=== PATIENT | male | born 1950 | race Caucasian/White ===

== ENCOUNTER → 2016-04-17 | Outpatient (CLI) | payer OTHER ==
[~2016-04-17] MED LIST: ACET325T82 PEG; AMLO2.5T PO; ASPCH81 PEG; ASPCH81X PO; ATOR-24 PO; BACL10TA PO; CMD1 PEG; CMD6 PO; DFL100 PEG; Fibersource 1.2 Cal PEG; LANS30TA3 PEG; LISI5TAB PO; LPT40 PEG; MELATAB2 PO; METO50TA16 PO; METO50TA17 PEG; OXYC1TAB3 PO; POLY335019 PO; SERT50TA PO; TRMCR130WC TOP; ZLF50 PEG; [UNRECOGNIZED DRUG - CODE] TOP
--- NOTE | 2016-04-17 13:39 | DIAGNOSTIC IMAGING REPORT ---
VIDEO SWALLOW STUDY CLINICAL HISTORY: Aspiration. Gastrostomy tube. COMPARISON STUDY: Video swallow study dated 02/06/2016. Fluoroscopy time: 3.9 minutes. FINDINGS: Fluoroscopic guidance was provided to the Department of Speech Pathology in performing a video swallow study. The patient consumed barium impregnated pudding, cracker with paste, nectar thick liquid, and thin barium while the swallowing mechanism was observed in real-time. Significant vallecular retention was noted with the sampled textures. There was silent aspiration seen with one of the thin barium swallows. No penetration or aspiration was seen with the additional sampled textures. Midline sternotomy wires are noted. IMPRESSION: 1. Silent aspiration was observed with one of the thin barium swallows. 2. Vallecular retention was noted with all sampled textures. 3. No penetration or aspiration was seen with the remaining sampled textures. 4. See dedicated speech pathology report for detailed findings and recommendations. Dictated: 04/17/2016 1:29 PM Transcribed: 04/17/2016 1:39 PM [email or web address] Electronically signed by: Abelardo Lopez M.D. 04/17/2016 1:43 PM Dictated Date/Time: 04/17/2016 1:29 PM
--- NOTE | 2016-04-17 16:33 | SWALLOWING EVALUATION ---
REFERRING SPEECH PATHOLOGIST: N/A HISTORY: This 65 year-old man was referred for a VFSS at [facility] in order to determine readiness to resume oral intake and discontinue use of PEG tube. 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 Other PMH: CABG, alcohol abuse, and tobacco abuse. Currently the patient's diet level is, officially, NPO with PEG-tube use, but he has been eating a varied diet via oral intake. Last VFSS was completed 02/06/16. PROCEDURE: The patient was seen in the Radiology Department of [facility] for the VFSS. Cursory examination of the oral cavity revealed adequate dentition. Movement of the articulators was impaired, BUT markedly improved from prior VFSS. Pt is now speaking intelligibly. Speech is slow and moderately dysarthric with some intermittent dysfluencies, but patient can have a conversation and be understood. The patient was seated on a stool and was viewed in both the Anterior-Posterior (A-P) and Lateral planes. Volitional phonation exercises completed in the A-P plane revealed bilateral vocal fold movement and vocal intensity within functional limits. In the lateral plane, the patient was given the following boluses: 1 tsp. thin liquid barium x 2, single swallow thin liquid barium self-presented from a cup, sequential swallows of thin liquid barium self-presented from a straw, 1 tsp. nectar-thick liquid barium, single swallow nectar-thick liquid barium self-presented from a cup, 1 tsp. barium pudding, and 1/2 club cracker with barium pudding. The patient was then repositioned into the A-P plane and given 1 tsp. barium pudding. RESULTS: Oral Stage: Interlabial bolus escape from left lateral juncture that did not progress beyond mid-chin. Bolus escape to floor of mouth during oral bolus hold exercise. Disorganize mastication with solid pieces of bolus left unchewed after initial bolus transfer to pharynx. Repetitive/disorganized lingual motion for bolus transfer. Majority of solid bolus remained in (L) buccal space and on tongue after initial swallow of solid bolus. Latent pharyngeal swallow initiation occurring when the bolus head was in the pyriform sinuses. The oral stage was disorganized and there was moderate lack of bolus control; HOWEVER, the patient compensated for it using finger sweeps and multiple swallows to clear boluses from the oral cavity. This represents significant improvement from the previous VFSS. Pharyngeal Stage: No bolus between soft palate and pharyngeal wall. Partial superior movement of the thyroid cartilage with partial approximation of the arytenoids to the epiglottic petiole. Complete anterior hyoid excursion. Complete epiglottic inversion. Incomplete laryngeal vestibular closure with narrow column of air in laryngeal vestibule. Present pharyngeal stripping wave. Incomplete pharyngeal contraction in the AP plane with evidence for pseudodiverticulae that cleared with a second swallow. Complete distention and duration of PES opening. Wide column of contrast between tongue base and pharyngeal wall. Collection of bolus in the valleculae after the swallow. This was sufficiently minimized with second swallow. There was only one episode of aspiration during this study. A scant amount of thin liquid barium was silently aspirated during sequential swallows presented via straw. All other pharyngeal stage dysphagia was primarily the results of weak tongue base retraction and incomplete thyroid elevation. Overall, this is improved from the previous VFSS. Esophageal Stage: No evidence of esophageal bolus retention. SUMMARY/RECOMMENDATIONS: This patient presents with mild-moderate oral-pharyngeal dysphagia. This is a great improvement from his prior study. The following is recommended: 1. Regular diet as tolerated. The patient is excellent at self-regulating the foods he is able to eat safely and has good caregiver support system at home. 2. Aspiration precautions: NO STRAWS; take liquids in single swallows; continue to use finger sweep and other compensatory strategies as needed for oral bolus control; take medications in a carrier (can trial small pills whole in carrier and work towards taking all pills whole in carrier) 3. Consideration of GI consultation for PEG-tube removal A summary of the results and recommendations was discussed with the patient and a caregiver immediately following the study. They verbalized full understanding. Thank you for referral of this patient. Please contact me at if any additional information is needed.
== END ==
LOC: C.RAD 11:06
PROVIDERS: ATTEND Internal Medicine
DX: Z93.1 Gastrostomy status (principal); R13.12 Dysphagia, oropharyngeal phase; T17.920A Food in respiratory tract, part unspecified causing asphyxiation, initial encounter; X58.XXXA Exposure to other specified factors, initial encounter

== ENCOUNTER → 2016-05-05 | Day surgery (SDC) | payer OTHER ==
[2016-05-04 15:25] VITALS: BMI 21.0
[~2016-05-05] VITALS: Ht 175.3 cm; Wt 61.8 kg
[~2016-05-05] MED LIST changes: -ASPCH81 PEG; -CMD1 PEG; -DFL100 PEG; -Fibersource 1.2 Cal PEG; -LANS30TA3 PEG; -LPT40 PEG; -METO50TA17 PEG; -ZLF50 PEG
[2016-05-05 10:37] VITALS: Ht 175.3 cm; Wt 61.8 kg
--- NOTE | 2016-05-05 11:16 | Endo History and Physical ---
History & Physical Date of Service: May 05, 2016. Chief Complaint: "I need my PEG tube removed" Referring Physician: Dr. Israel History of Present Illness 65 yo CM who presents for PEG tube removal. Past Surgical History Hx Cardiac Surgery: Yes (CABG-1 VESSEL) Hx Internal Defibrillator: No Hx Pacemaker: No Hx Abdominal Surgery: Yes (PEG TUBE INSERTION) Hx of Implantable Prosthesis: No Hx Post-Op Nausea and Vomiting: No Hx Cancer Surgery: No Hx Thoracic Surgery: No Hx Orthopedic: Yes (RT FOOT SX) Hx Urinary Tract Surgery: No Family History None Social History Smoking Status: Former Smoker Hx Substance Use: No Hx Alcohol Use: No Allergies Coded Allergies: Lorazepam (Verified Adverse Reaction, Intermediate, DELIRIUM, 05/04/16) excessive sedation Current Medications Reported Home Medications Medications Dose Route/Sig Max Daily Dose Days Date Category Melatonin Maximum Strengt (Melatonin) 5 Mg Tab 1 Tab PO HS 30 05/04/16 Reported Zoloft (Sertraline HCl) 50 Mg Tab 50 Mg PO QAM 05/04/16 Reported Aspirin Chewable (Aspirin) 81 Mg Chew 81 Mg PO QAM 05/04/16 Reported Coumadin (Warfarin Sod) 6 Mg Tab 1 Tab PO QPM 05/04/16 Reported Lopressor (Metoprolol Tartrate) 50 Mg Tab 50 Mg PO BID 05/04/16 Reported Lipitor (Atorvastatin Calcium) 40 Mg Tab 40 Mg PO QAM 05/04/16 Reported Norvasc (Amlodipine Besylate) 2.5 Mg Tab 2.5 Mg PO QAM 05/04/16 Reported Roxicodone Ir (Oxycodone HCl) 5 Mg Tab 5 Mg PO BID PRN 05/04/16 Reported Lioresal (Baclofen) 10 Mg Tab 10 Mg PO HS 05/04/16 Reported Lioresal (Baclofen) 10 Mg Tab 5 Mg PO BID 05/04/16 Reported Vital Signs Weight (Kilograms): 61.82 Height (Feet): 5 Height (Inches): 9 Date Time Temp Pulse Resp B/P Pulse Ox O2 Delivery O2 Flow Rate FiO2 05/05/16 10:39 36.7 75 20 129/69 97 Room Air Physical Exam General Appearance: WD/WN, no apparent distress Respiratory/Chest: Auscultation: breath sounds normal Cardiovascular: Heart Auscultation: RRR Abdomen: Bowel Sounds: normal Inspection & Palpation: soft, non-distended, no tenderness, guarding & rebound Assessment and Plan Assessment: 65 yo CM who presents for PEG tube removal. Plan: Proceed with PEG tube removal
--- NOTE | 2016-05-05 11:17 | Discharge Instructions ---
Endoscopy Patient Instructions Date / Procedure Performed May 05, 2016. Percutaneous Endoscopic Gastrotomy (P.E.G) Tube Replacement / Removal Allergy Information Coded Allergies: Lorazepam (Verified Adverse Reaction, Intermediate, DELIRIUM, 05/04/16) excessive sedation Home Medication List Scheduled Amlodipine (Norvasc), 2.5 MG PO QAM Aspirin (Aspirin Chewable), 81 MG PO QAM Atorvastatin (Lipitor), 40 MG PO QAM Baclofen (Lioresal), 5 MG PO BID Baclofen (Lioresal), 10 MG PO HS Melatonin (Melatonin Maximum Strengt), 1 TAB PO HS Metoprolol Tartrate (Lopressor) (Lopressor), 50 MG PO BID Sertraline (Zoloft), 50 MG PO QAM Warfarin Sod (Coumadin), 1 TAB PO QPM Scheduled PRN Oxycodone Ir (Roxicodone Ir), 5 MG PO BID PRN for Pain Discharge Date / Findings May 05, 2016. Successful PEG tube removal Provider Instructions Activity Recommendations * Resume regular activity . Diet Recommendations * Resume previous diet. * Advance diet as tolerated. Medication Instructions * Resume usual medications. Follow-Up Information Follow-up with Dr. Israel as scheduled Anesthesia Information What You Should Know You have had a procedure that required some medicine to reduce anxiety and discomfort. This treatment is called moderate sedation. After receiving the treatment, you may be sleepy, but you will be able to breathe on your own. The effects of the treatment may last for several hours. Follow these instructions along with Activity/Diet recommendations noted above: * Do NOT do anything where dizziness or clumsiness would be dangerous. * Rest quietly at home today, then you can be up and about tomorrow. * Have a responsible person stay with you the rest of today. * You may have had an I.V. today. If so, you may take the dressing off later today. Symptoms Additional Instructions If you experience any of the following symptoms after your procedure seek medical attention at your closest Emergency Room and/or call your primary care physician immediately: * Severe abdominal pain or bloating * Fever greater than 101.1 degrees within 24 hours after the procedure * Uncontrolled nausea and vomiting Avoid all tobacco products. If you need help to stop smoking, call [place] FREE QUIT LINE at [phone]. Your discharge instructions were prepared by provider Zak Oh. Patient Instructions Signature Page Raza Ramirez Patient (or Guardian) Signature/Date: I have read and understand the instructions given to me by my caregivers. Caregiver/RN/Doctor Signature/Date: The above-named patient and/or guardian has received patient instructions on this date. + Original Patient Signature Page (only) stays with chart. Please make copy for patient.
[2016-05-05 11:29] VITALS: BP 148/76; PULSE 76; O2SAT 97
--- NOTE | 2016-05-19 10:11 | OPERATIVE REPORT ---
DATE OF OPERATION: 05/05/2016 PATIENT'S AGE: 65. SEX: Male. RACE: . Mr. Ramirez presented to the endoscopy unit for removal of his PEG tube as he is no longer using it and is swallowing appropriately. He consented to the removal of his PEG tube and he was placed in a supine position and with gentle traction the PEG tube was easily removed. The patient tolerated the procedure well. There were no complications. There was no blood loss. He was discharged to home and told to return if he had any abdominal pain, fevers, chills. He was advised to eat a regular diet as tolerated. He will follow up with his primary care doctor. If you have any further questions, please do not hesitate in contacting me. I attest to the content of the Intraoperative Record and any orders documented therein. Any exceptio ns are noted below.
== END | disposition home or self-care (01) ==
LOC: C.GI 09:39
PROVIDERS: ATTEND Internal Medicine
DX: Z43.1 Encounter for attention to gastrostomy (principal)

== ENCOUNTER 2016-07-02 13:13 | Emergency (ER) | payer OTHER ==
[~2016-07-02] VITALS: Ht 175.3 cm; Wt 62.5 kg
[~2016-07-02 13:13] MED LIST changes: -ACET325T82 PEG; -LISI5TAB PO; -POLY335019 PO; -TRMCR130WC TOP; -[UNRECOGNIZED DRUG - CODE] TOP
[2016-07-02 13:15] VITALS: TEMP 36.7
[2016-07-02] MEDS ORDERED: SODIUM CHLORIDE 0.9% 1000ML 1,000 ML IV SCH (13:30)
[2016-07-02 13:39] VITALS: Ht 175.3 cm; Wt 62.5 kg
--- NOTE | 2016-07-02 13:56 | DIAGNOSTIC IMAGING REPORT ---
SINGLE VIEW CHEST CLINICAL HISTORY: Strokelike symptoms. FINDINGS: An AP, portable, upright chest radiograph is compared to study dated 01/05/2016 and correlated with chest CT dated 08/07/2007. The patient is status post midline sternotomy. The heart is top normal in size and there is atherosclerotic calcification of the thoracic aorta. Emphysema and chronic interstitial thickening are similar to previous. No airspace consolidation or pleural effusion is identified. Foci of linear scarring are seen in the left midlung. Biapical scarring is observed. No pneumothorax is seen. The skeletal structures are osteopenic. The bony thorax is grossly intact. IMPRESSION: Emphysema with no acute cardiopulmonary abnormality. Electronically signed by: Abelardo Lopez M.D. 07/02/2016 1:54 PM Dictated Date/Time: 07/02/2016 1:52 PM
[2016-07-02 14:15] LABS: BASO % 0.4 %; BASO ABS # 0.03 K/uL (0-0.2); COMPLETE YES; EOS % 3.5 %; HEMATOCRIT 41.3 % (42-52); LYMPH % 47.1 %; LYMPH ABS # 4.02 K/uL (1.2-3.4); MEAN CORPUSCULAR HEMOGLOBIN 28.9 pg (25-34); MEAN CORPUSCULAR HGB CONC 32.4 g/dl (32-36); MONO % 9.4 %; NEUT % 39.6 %; PLATELET COUNT 228 K/uL (130-400); RED BLOOD COUNT 4.64 M/uL (4.7-6.1); WHITE BLOOD COUNT 8.53 K/uL (4.8-10.8)
[2016-07-02 14:23] LABS: INR 2.4 (0.9-1.1); PARTIAL THROMBOPLASTIN RATIO 1.5; PROTHROMBIN TIME (PATIENT) 26.7 SECONDS (9.0-12.0)
[2016-07-02 14:39] LABS: BLOOD UREA NITROGEN 20 mg/dl (7-18); BUN/CREATININE RATIO 15.2 (10-20); CARBON DIOXIDE 25 mmol/L (21-32); CHLORIDE 112 mmol/L (98-107); GLUCOSE 84 mg/dl (70-99); POTASSIUM 4.5 mmol/L (3.5-5.1); SODIUM 145 mmol/L (136-145)
--- NOTE | 2016-07-02 14:46 | DIAGNOSTIC IMAGING REPORT ---
CT SCAN OF THE BRAIN WITHOUT IV CONTRAST CLINICAL HISTORY: Strokelike symptoms. Recent fall. COMPARISON STUDY: CT of the brain dated 01/27/2016. TECHNIQUE: Unenhanced axial CT scan of the brain is performed from the vertex to the skull base. CT DOSE: 614.27 mGy.cm FINDINGS: Brain parenchyma: There are age-related involutional changes noting mild subcortical and periventricular microangiopathic change. Again seen is encephalomalacia from a remote right MCA territory infarct. There is no hemorrhage, mass effect, or evidence of acute territorial ischemia by CT criteria. Pena-white matter is preserved. No extra-axial fluid collection is seen. Ventricles, sulci, cisterns: Prominent secondary to involutional change. Intracranial vasculature: There is atherosclerotic calcification of the cavernous carotid arteries. Calvarium: There is no depressed calvarial fracture. Soft tissues: There is a small left frontal scalp contusion. Sinuses and mastoids: The visualized paranasal sinuses are clear. The mastoid air cells are well pneumatized. Orbits: The bony orbits are grossly intact. IMPRESSION: 1. There is no hemorrhage, mass effect, or evidence of acute territorial ischemia by CT criteria. 2. A remote right MCA territory infarct is again noted. 3. Left frontal scalp contusion. No depressed calvarial fracture is seen. Electronically signed by: Abelardo Lopez M.D. 07/02/2016 2:44 PM Dictated Date/Time: 07/02/2016 2:41 PM
[2016-07-02 14:54] VITALS: O2SAT 100
[2016-07-02 15:37] LABS: BENZODIAZEPINE, URINE NEG (NEG); COCAINE,URINE NEG (NEG); PHENCYCLIDINE, URINE NEG (NEG)
--- NOTE | 2016-07-02 15:55 | DIAGNOSTIC IMAGING REPORT ---
RIGHT HAND MIN 3 VIEWS ROUTINE CLINICAL HISTORY: eval for fx Right trauma. Pain. COMPARISON: None. DISCUSSION: The bones and joint spaces appear intact. There is no evidence of fracture, dislocation or bony disease. There is no evidence for soft tissue swelling. IMPRESSION: Negative study. Electronically signed by: Angel Finney M.D. 07/02/2016 3:52 PM Dictated Date/Time: 07/02/2016 3:50 PM
--- NOTE | 2016-07-02 17:47 | EMERGENCY ROOM VISIT NOTE ---
History Report prepared by Richard: Estelita Lew Under the Supervision of: Dr. Sushil Costello M.D. First contact with patient: 13:20 Chief Complaint: NEURO SYMPTOMS Stated Complaint: SIGNS OF MINI STROKE,FALL ON CONCRETE ON SAT History of Present Illness The patient is a 65 year old male who presents to the Emergency Room with complaints of persistent neurological symptoms that began 6 days ago. 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 She was suspicious of a TIA at that time. 5 days ago, the patient tripped on the side walk and fell. He hit his head but did not lose consciousness. He has some scrapes and bruises to his right arm, but denies any other injuries or complaints from the fall. 3 days ago, she suggested that the patient come to the ED, but he refused. Today, the patient's therapist noticed his speech slurring and right arm weakness, and she also felt that he should come to the ED. His power of senior c web developer states that the patient has left side residual weakness from a stroke in December 2015. He receives speech therapy. The patient is on warfarin. Denies headache, numbness, chest pain, shortness of breath, hip pain, back pain, vomiting, or other complaints. Source of History: patient, other (power of senior c web developer) Onset: 6 days ago Position: other (global) Quality: other (neurological symptoms) Timing: other (persistent) Associated Symptoms: + weakness (right arm ), No LOC, No SOB, No back pain, No chest pain, No headache, No numbness, No vomiting Note: Other symptoms: slurred speech Review of Systems See HPI for pertinent positives & negatives. A total of 10 systems reviewed and were otherwise negative. Past Medical & Surgical Medical Problems: (1) Acute kidney injury (2) Acute right MCA stroke (3) Alcohol abuse (4) Depression (5) Hypertension Family History Patient reports no known family medical history. Social History Smoking Status: Current Every Day Smoker Alcohol Use: heavy Drug Use: none Housing Status: lives alone Occupation Status: disabled Current/Historical Medications Scheduled Aspirin (Aspirin Chewable), 81 MG PO QAM Atorvastatin (Lipitor), 40 MG PO QPM Baclofen (Lioresal), 5 MG PO BID Baclofen (Lioresal), 10 MG PO HS Melatonin (Melatonin Maximum Strengt), 1 TAB PO HS Metoprolol Tartrate (Lopressor) (Lopressor), 50 MG PO BID Sertraline (Zoloft), 50 MG PO QAM Warfarin Sod (Coumadin), 1 TAB PO QPM Scheduled PRN Oxycodone Ir (Roxicodone Ir), 5 MG PO BID PRN for Pain Allergies Coded Allergies: Lorazepam (Verified Adverse Reaction, Intermediate, DELIRIUM, 07/02/16) excessive sedation Physical Exam Vital Signs Date Time Temp Pulse Resp B/P Pulse Ox O2 Delivery O2 Flow Rate FiO2 07/02/16 14:55 48 17 113/68 100 Room Air 07/02/16 14:54 100 Room Air 07/02/16 13:15 36.7 50 16 110/67 99 Room Air Physical Exam Constitutional: Vital signs reviewed. Eyes: Bruising to the left orbit without body tenderness. Pupils are equal round reactive to light. Conjunctiva are noninjected. ENT: Pharynx is clear without erythema or exudate. Mucous membranes are moist. Neck supple without meningeal signs. Respiratory: Clear to auscultation bilaterally. Breath sounds are equal bilaterally. Cardiovascular: Regular rate and rhythm. No rubs or gallops. GI: Soft, nondistended. Some left lower quadrant tenderness, no guarding. Bowel sounds are present. Musculoskeletal: No peripheral edema. No lower extremity tenderness. Diffuse bruising to the entire right hand, no deformity. Integumentary: No cyanosis. Neurological: The patient is awake and alert. Left arm weakness from his old stroke. He cannot smile, but there is no facial droop. Sensation is intact to light touch all extremities. No significant slurring of speech. GCS 15. Psychiatric: Normal affect. Medical Decision & Procedures ER Provider Diagnostic Interpretation: Radiology results as stated below per my review and the radiologist's interpretation: CT SCAN OF THE BRAIN WITHOUT IV CONTRAST CLINICAL HISTORY: Strokelike symptoms. Recent fall. COMPARISON STUDY: CT of the brain dated 01/27/2016. TECHNIQUE: Unenhanced axial CT scan of the brain is performed from the vertex to the skull base. CT DOSE: 614.27 mGy.cm FINDINGS: Brain parenchyma: There are age-related involutional changes noting mild subcortical and periventricular microangiopathic change. Again seen is encephalomalacia from a remote right MCA territory infarct. There is no hemorrhage, mass effect, or evidence of acute territorial ischemia by CT criteria. Pena-white matter is preserved. No extra-axial fluid collection is seen. Ventricles, sulci, cisterns: Prominent secondary to involutional change. Intracranial vasculature: There is atherosclerotic calcification of the cavernous carotid arteries. Calvarium: There is no depressed calvarial fracture. Soft tissues: There is a small left frontal scalp contusion. Sinuses and mastoids: The visualized paranasal sinuses are clear. The mastoid air cells are well pneumatized. Orbits: The bony orbits are grossly intact. IMPRESSION: 1. There is no hemorrhage, mass effect, or evidence of acute territorial ischemia by CT criteria. 2. A remote right MCA territory infarct is again noted. 3. Left frontal scalp contusion. No depressed calvarial fracture is seen. Electronically signed by: Abelardo Lopez M.D. 07/02/2016 2:44 PM Dictated Date/Time: 07/02/2016 2:41 PM SINGLE VIEW CHEST CLINICAL HISTORY: Strokelike symptoms. FINDINGS: An AP, portable, upright chest radiograph is compared to study dated 01/05/2016 and correlated with chest CT dated 08/07/2007. The patient is status post midline sternotomy. The heart is top normal in size and there is atherosclerotic calcification of the thoracic aorta. Emphysema and chronic interstitial thickening are similar to previous. No airspace consolidation or pleural effusion is identified. Foci of linear scarring are seen in the left midlung. Biapical scarring is observed. No pneumothorax is seen. The skeletal structures are osteopenic. The bony thorax is grossly intact. IMPRESSION: Emphysema with no acute cardiopulmonary abnormality. Electronically signed by: Abelardo Lopez M.D. 07/02/2016 1:54 PM Dictated Date/Time: 07/02/2016 1:52 PM RIGHT HAND MIN 3 VIEWS ROUTINE CLINICAL HISTORY: eval for fx Right trauma. Pain. COMPARISON: None. DISCUSSION: The bones and joint spaces appear intact. There is no evidence of fracture, dislocation or bony disease. There is no evidence for soft tissue swelling. IMPRESSION: Negative study. Electronically signed by: Angel Finney M.D. 07/02/2016 3:52 PM Dictated Date/Time: 07/02/2016 3:50 PM Laboratory Results 07/02/16 14:00 Red Blood Count 4.64, Mean Corpuscular Volume 89.0, Mean Corpuscular Hemoglobin 28.9, Mean Corpuscular Hemoglobin Concent 32.4, Mean Platelet Volume 10.0, Neutrophils (%) (Auto) 39.6, Lymphocytes (%) (Auto) 47.1, Monocytes (%) (Auto) 9.4, Eosinophils (%) (Auto) 3.5, Basophils (%) (Auto) 0.4, Neutrophils # (Auto) 3.38, Lymphocytes # (Auto) 4.02, Monocytes # (Auto) 0.80, Eosinophils # (Auto) 0.30, Basophils # (Auto) 0.03 07/02/16 14:00 Test 07/02/16 13:40 07/02/16 14:00 07/02/16 14:59 Bedside Prothrombin Time INR 2.9 (0.9-1.1) White Blood Count 8.53 K/uL (4.8-10.8) Red Blood Count 4.64 M/uL (4.7-6.1) Hemoglobin 13.4 g/dL (14.0-18.0) Hematocrit 41.3 % (42-52) Mean Corpuscular Volume 89.0 fL (80-100) Mean Corpuscular Hemoglobin 28.9 pg (25-34) Mean Corpuscular Hemoglobin Concent 32.4 g/dl (32-36) Platelet Count 228 K/uL (130-400) Mean Platelet Volume 10.0 fL (7.4-10.4) Neutrophils (%) (Auto) 39.6 % Lymphocytes (%) (Auto) 47.1 % Monocytes (%) (Auto) 9.4 % Eosinophils (%) (Auto) 3.5 % Basophils (%) (Auto) 0.4 % Neutrophils # (Auto) 3.38 K/uL (1.4-6.5) Lymphocytes # (Auto) 4.02 K/uL (1.2-3.4) Monocytes # (Auto) 0.80 K/uL (0.11-0.59) Eosinophils # (Auto) 0.30 K/uL (0-0.5) Basophils # (Auto) 0.03 K/uL (0-0.2) RDW Standard Deviation 47.0 fL (36.4-46.3) RDW Coefficient of Variation 14.4 % (11.5-14.5) Immature Granulocyte % (Auto) 0.0 % Immature Granulocyte # (Auto) 0.00 K/uL (0.00-0.02) Prothrombin Time 26.7 SECONDS (9.0-12.0) Prothromb Time International Ratio 2.4 (0.9-1.1) Activated Partial Thromboplast Time 39.4 SECONDS (21.0-31.0) Partial Thromboplastin Ratio 1.5 Anion Gap 8.0 mmol/L (3-11) Est Creatinine Clear Calc Drug Dose 49.4 ml/min Estimated GFR () 65.9 Estimated GFR (Non- 56.9 BUN/Creatinine Ratio 15.2 (10-20) Calcium Level 9.0 mg/dl (8.5-10.1) Troponin I < 0.015 ng/ml (0-0.045) Urine Opiates Screen POS (NEG) Urine Methadone, Qualitative NEG (NEG) Urine Barbiturates NEG (NEG) Urine Phencyclidine (PCP) Level NEG (NEG) Ur Amphetamine/Methamphetamine NEG (NEG) MDMA (Ecstasy) Screen NEG (NEG) Urine Benzodiazepines Screen NEG (NEG) Urine Cocaine Metabolite NEG (NEG) Urine Marijuana (THC) NEG (NEG) Laboratory results as reviewed by me. Medications Administered Medications (Trade) Dose Ordered Sig/Rena Route Start Time Stop Time Status Last Admin Dose Admin Sodium Chloride (Nss 1000ml) 1,000 ml @ 50 mls/hr Q20H IV 07/02/16 13:30 08/01/16 13:29 07/02/16 13:41 50 MLS/HR ECG Indication: other (neurological symptoms) Rate (beats per minute): 45 Rhythm: sinus bradycardia Findings: T-wave inversion (lead 3), no ectopy ED Course 1322: The patient was evaluated in room C1. A complete history and physical exam was performed. 1330: Ordered NSS 1000 ml @ 50 mls/hr IV. 1442: I reassessed the patient and talked to him about his CBC and rectal exam. He says that he drank Peptol Bismol recently. 1447: The patient's records on the [employer] system were reviewed. His most recent CBC was January of last year. 1534: I discussed the case with Dr. Dey [place] [facility]. He recommended getting an MRI, and if it is negative, discharging the patient. 1720: I reassessed the patient and updated him on the plan. 1800: The patient was signed out to Dr. Wilson at the change of shift pending MRI results. Please see his note for further information regarding the patient' s visit and disposition. Medical Decision This is a 65-year-old male presents with neurologic symptoms and a fall. Differential diagnosis includes intracranial hemorrhage, CVA, TIA, metabolic derangement, intracranial mass. I did perform a limited focused review of portions of the patient's old chart on the electronic medical record. He was admitted December of last year for CVA which was bihemispheric in multiple territories, thought to be embolic. I did evaluate the patient as noted above. I do not notice any focal deficits on examination other than his pre-existing deficits from his prior stroke. IV access was established. The patient was placed on a continuous alarm security or surveillance monitor. I did order and personally review the patient's 12-lead EKG and x- rays as described above. I did order and review the patient's blood work as noted in the electronic medical record. His INR is therapeutic. I did order a CT of the head. I did review the images myself as well as the radiology report as described above. There is no evidence of acute process. I did reassess the patient. He seems at his baseline at this time according to his healthcare proxy. I discussed the case with Dr. Dey of neurology who recommended obtaining an MRI of the brain. Should the MRI be negative she could be discharged home. I did order the MRI which is currently pending. The patient was signed out to Dr. Wilson. Consults Time Called: 1518 Consulting Physician: Dr. Yissel FIGUEREDO [facility] Returned Call: [phone] I discussed the case with him. He recommended getting an MRI, and if it is negative, discharging the patient. Impression Primary Impression: Neurological symptoms Additional Impressions: Fall Head injury Anticoagulated on Coumadin Injury of right hand Scribe Attestation The scribe's documentation has been prepared under my direct and personally reviewed by me in its entirety. I confirm that the note above accurately reflects all work, treatment, procedures, and medical decision making performed by me. Departure Information Dispostion Still a Patient (signed out to Dr. Wilson) Referrals Kathy Israel M.D. (PCP) Patient Instructions My [facility] Problem Qualifiers Additional Impressions: Fall Encounter type: initial encounter Qualified Codes: W19.XXXA - Unspecified fall, initial encounter Head injury Encounter type: initial encounter Qualified Codes: S09.90XA - Unspecified injury of head, initial encounter Injury of right hand Encounter type: initial encounter Qualified Codes: S69.91XA - Unspecified injury of right wrist, hand and finger(s), initial encounter
[2016-07-02] MEDS ORDERED: GADAVIST IV PRN (20:30)
--- NOTE | 2016-07-02 21:05 | DIAGNOSTIC IMAGING REPORT ---
MRI OF THE BRAIN WITHOUT AND WITH IV CONTRAST CLINICAL HISTORY: Right hand weakness and difficulty with speech. History of stroke. Recent fall. COMPARISON STUDY: MRI of the brain December 28, [address] performed earlier today. TECHNIQUE: Utilizing a 1.5 Ladonna magnet and dedicated coil, multiplanar, multiecho imaging of the brain was performed pre and postcontrast administration. IV administration of 6 mL of Gadavist contrast was uneventful. FINDINGS: There is an old large right middle cerebral artery territory infarct with encephalomalacia. Scattered additional old infarcts are noted, including within the posterior left frontal lobe. There are no areas of restricted diffusion to suggest acute infarct. Apparent restricted diffusion within the right occipital lobe is within the old infarct and is likely chronic. An area of increased signal intensity within the left frontal lobe shown on image 16 of the diffusion-weighted sequence likely reflects T2 shine through. This favors an old infarct. Basilar cisterns are patent. There are no extra-axial collections. No acute intracranial hemorrhage is present. A small left forehead contusion is present. No suspicious calvarial lesions are present. There are no intracranial masses. Gyriform increased T1 signal within the old infarcts reflects laminar necrosis. A band of increased T2 signal extending through the brainstem suggests Wallerian degeneration related to the old infarct. IMPRESSION: 1. No acute intracranial findings. 2. Large old right MCA territory infarct and scattered additional old infarcts, as described above. 3. No acute intracranial hemorrhage. Electronically signed by: Jurgen Jones M.D. 07/02/2016 9:03 PM Dictated Date/Time: 07/02/2016 8:54 PM
[2016-07-02 21:32] VITALS: BP 151/74; PULSE 56; O2SAT 98
--- NOTE | 2016-07-02 22:44 | EMERGENCY ROOM VISIT NOTE ---
ED Visit Note First contact with patient: 18:11 65 yr old male arrived earlier in day for evaluation of right sided weakness. Dr Costello initially evaluated and worked up. He discussed with neurology who advised MRI brain. Patient signed out to me with plan if MRI normal to discharge home. Patient with no complaints while in ED. MRI without any acute findings. Patient comfortable with going home.
[2016-07-06 05:28] LABS: COD UR NEGATIVE NG/ML (CUTOFF=50); HYDROCOD UR NEGATIVE NG/ML (CUTOFF=50); HYDROMOR UR NEGATIVE NG/ML (CUTOFF=50); MORPHINE UR NEGATIVE NG/ML (CUTOFF=50); NORHYDROCODONE CONF UR NEGATIVE NG/ML (CUTOFF=50); OXYMORPH UR 840 NG/ML (CUTOFF=50)
[2016-07-22] MEDS ORDERED: POLY335019 PO (08:26)
[2016-07-22] MEDS ORDERED: ACET325T82 PEG (08:26)
[2016-07-22] MEDS ORDERED: TRMCR130WC TOP (08:26)
[2016-07-22] MEDS ORDERED: LISI5TAB PO (08:26)
[2016-07-22] MEDS ORDERED: [UNRECOGNIZED DRUG - CODE] TOP (08:26)
== END 2016-07-02 21:33 | disposition home or self-care (01) ==
LOC: C.EDB 13:14 → C.EDC 21:33
DX: M62.81 Muscle weakness (generalized) (principal); R47.81 Slurred speech; S09.90XA Unspecified injury of head, initial encounter; S69.91XA Unspecified injury of right wrist, hand and finger(s), initial encounter; W19.XXXA Unspecified fall, initial encounter; I69.398 Other sequelae of cerebral infarction; F10.10 Alcohol abuse, uncomplicated; F32.9 Major depressive disorder, single episode, unspecified; I10 Essential (primary) hypertension; F17.200 Nicotine dependence, unspecified, uncomplicated; Z79.82 Long term (current) use of aspirin; Z79.01 Long term (current) use of anticoagulants; Z79.899 Other long term (current) drug therapy

== ENCOUNTER 2017-03-18 04:36 | Emergency (ER) | payer OTHER ==
[~2017-03-18] VITALS: Ht 175.3 cm; Wt 62.8 kg
[2017-03-18 04:36] VITALS: TEMP 37.1; Ht 175.3 cm; Wt 62.8 kg
[~2017-03-18 04:36] MED LIST changes: +ACET325T82 PEG; -AMLO2.5T PO; +LISI5TAB PO; +OXYC-90 PO; -OXYC1TAB3 PO; +POLY335019 PO; +TRMCR130WC TOP; +[UNRECOGNIZED DRUG - CODE] TOP
[2017-03-18 04:43] VITALS: O2SAT 97
[2017-03-18 04:45] VITALS: O2SAT 97
[2017-03-18] MEDS ORDERED: PSEU60TA80 PO (05:05)
[2017-03-18] MEDS ORDERED: ADVIN25/60 INH (05:07)
[2017-03-18] MEDS ORDERED: ALBU18002 INH (05:08)
[2017-03-18] MEDS ORDERED: CLR10 PO (05:09)
[2017-03-18] MEDS ORDERED: TADA10TA PO (05:11)
[2017-03-18] MEDS ORDERED: ALBUT/IPRATROP 3MG/0.5MG NEB 3 ML VIAL INH STA (05:13)
--- NOTE | 2017-03-18 05:13 | EMERGENCY ROOM VISIT NOTE ---
History Report prepared by Richard: Chris Richardson Under the Supervision of: Dr. Selene Brewer D.O. First contact with patient: 04:50 Chief Complaint: RESPIRATORY PROBLEMS Stated Complaint: COUGH/CHEST CONGESTION Nursing Triage Summary: Pt brought in by EMS. Pt reports cough and congestion for 2 weeks. Pt took Mucinex tonight with no relief. Pt woke an hour ago with shortness of breathe. Hx CVA History of Present Illness The patient is a 66 year old male who presents to the Emergency Room with complaints of shortness of breath that began 1 hour ago. The patient's first symptoms began a couple of weeks ago with a cough and congestion. These two continued until recently when he awoke from sleep having difficulty breathing. He notes that yesterday he took Mucinex , but it did not help his symptoms. He notes that his cough is productive with clear sputum. If he is able to cough out his sputum, his chest congestion feels moderately better. He denies any fevers, abdominal pain, or leg cramping. He was seen last week at a walk in clinic and was given a course of Prednisone which helped his symptoms as well. He has a past medical history of a stoke that occurred 15 months ago. He was rehabilitated at [facility]. Source of History: patient Onset: 1 hour ago Position: other (Respiratory System) Symptom Intensity: moderate Quality: other (Shortness of breath) Timing: constant Associated Symptoms: + cough (clear sputum production), No fevers, No abdominal pain Note: He is experiencing chest congestion. He denies any leg cramping. Review of Systems See HPI for pertinent positives & negatives. A total of 10 systems reviewed and were otherwise negative. Past Medical & Surgical Medical Problems: (1) Acute kidney injury (2) Acute right MCA stroke (3) Alcohol abuse (4) Depression (5) Hypertension Family History Patient reports no known family medical history. Social History Smoking Status: Current Some Day Smoker Alcohol Use: heavy Drug Use: none Housing Status: lives alone Occupation Status: disabled Current/Historical Medications Scheduled Aspirin (Aspirin Chewable), 81 MG PO QAM Atorvastatin (Lipitor), 40 MG PO QPM Baclofen (Lioresal), 10 MG PO BID Baclofen (Lioresal), 20 MG PO HS [place] Tar Extract (Ionil-T), 1 APPLN TOP HS Fluticasone Prop/Salmeterol (Advair Diskus 250/50 60 Dose), 1 PUFF INH BID Hydrocodone W/ Homatropine (Hycodan 5/1.5MG 5 Ml), 5 ML PO Q4H Lisinopril (Prinivil), 2.5 MG PO DAILY Loratadine (Claritin), 10 MG PO DAILY Methylprednisolone (Medrol Dosepak), 1 PKT PO UD Metoprolol Tartrate (Lopressor) (Lopressor), 25 MG PO BID Triamcinolone Acet (Aristocort 0.1%), 1 APPLN TOP BID Warfarin Sod (Coumadin), 6 MG PO QPM Scheduled PRN Acetaminophen (Apap), 650 MG PEG Q4 PRN for Pain or Fever Albuterol Sulfate (Proair Respiclick), 2 PUFFS INH Q6 PRN for wheezing Oxycodone Ir (Roxicodone Ir), 5 MG PO BID PRN for Pain Polyethylene Glycol 3350 (Miralax), 17 GM PO DAILY PRN for Constipation Pseudoephedrine-Guaifenesin (Mucinex D), 1 TAB PO BID PRN for congestion Tadalafil (Cialis), 10 MG PO UD PRN for erectile dysfunction Allergies Coded Allergies: Lorazepam (Verified Adverse Reaction, Intermediate, DELIRIUM, 03/18/17) excessive sedation Physical Exam Vital Signs Date Time Temp Pulse Resp B/P (MAP) Pulse Ox O2 Delivery O2 Flow Rate FiO2 03/18/17 06:12 90 16 125/72 Room Air 03/18/17 04:45 97 Room Air 03/18/17 04:43 105 03/18/17 04:43 97 Room Air 03/18/17 04:36 37.1 103 24 124/104 100 Room Air Physical Exam HEENT: Head - normocephalic and atraumatic Pupils are equal, round, and reactive to light. Extraocular eye muscles are intact, and sclera are anicteric. Nose - moist nasal mucosa without discharge. Mouth - moist buccal mucosa. Oropharynx is nonerythematous and there is no tonsillar exudate or edema noted. Neck: Supple; no JVD, nuchal rigidity, cervical lymphadenopathy, or auscultated bruits. Heart: Regular rate and rhythm. There is a normal S1 and S2 with no murmurs, clicks, or gallops appreciated. Lungs: Minimal expiratory bibasilar wheezes. Abdomen: Soft, completely nontender, nondistended, with good bowel sounds. There are no palpable pulsatile masses or hepatosplenomegaly. There is no guarding, rigidity, or rebound noted. Extremities: No evidence of cyanosis, clubbing, or edema. There are easily palpable peripheral pulses. Skin: warm and dry with good turgor and no rashes. Medical Decision & Procedures ER Provider Diagnostic Interpretation: Radiology results as stated below per my review and the radiologist's interpretation: CHEST X-RAY 1 VIEW: Negative for acute process. No pulmonary infiltrates. Some interstitial scarring. Per me. Medications Administered Medications (Trade) Dose Ordered Sig/Rena Route Start Time Stop Time Status Last Admin Dose Admin Albuterol/ Ipratropium (Duoneb) 3 ml NOW STAT INH 03/18/17 05:13 03/18/17 05:15 DC 03/18/17 05:19 3 ML Prednisone (PredniSONE TAB) 60 mg NOW STAT PO 03/18/17 05:13 03/18/17 05:15 DC 03/18/17 05:19 60 MG Procedure Prednisone 60 mg PO DuoNeb 3 ml INH ECG Indication: SOB/dyspnea Rate (beats per minute): 103 Rhythm: sinus tachycardia Findings: no acute ischemic change, no ectopy ED Course 0450: Past medical records reviewed. The patient was evaluated in room B12B. A complete history and physical exam was performed. 0513: Ordered Prednisone 60 mg PO, DuoNeb 3 ml INH 0609: The patient's is feeling slightly better after his nebulizer. We discussed his chest x-ray results. He is no longer wheezing. He will be discharged. 0630: Upon reevaluation, the patient is resting. I discussed findings and results with him. He verbalized agreement of the treatment plan. He was discharged home. Medical Decision The patient is a 66 year old male who presents to the ED with shortness of breath. Differential diagnosis includes URI, pneumonia, and bronchitis. The patient describes shortness of breath and cough over the past couple weeks. On physical exam, he's been wheezing. He had some relief of the shortness of breath after the nebulizer treatment. A chest x-ray was unremarkable. The patient describes having similar episodes in the past which responded nicely to steroids. He was given a tapering dose of prednisone. He was also given Hycodan cough syrup.as Medication Reconcilliation Current Medication List: was personally reviewed by me Blood Pressure Screening Patient's blood pressure: Normal blood pressure Blood pressure disposition: Did not require urgent referral Impression Primary Impression: Wheezing Scribe Attestation The scribe's documentation has been prepared under my direction and personally reviewed by me in its entirety. I confirm that the note above accurately reflects all work, treatment, procedures, and medical decision making performed by me. Departure Information Dispostion Home / Self-Care Prescriptions Hydrocodone W/ Homatropine (HYCODAN 5/1.5MG 5 ML) 1 Syp Syp 5 ML PO Q4H, #100 ML Prov: Selene Brewer D.O. 03/18/17 Methylprednisolone (MEDROL DOSEPAK) 4 Mg Maxim 1 PKT PO UD for 6 Days, #1 PKT Prov: Selene Brewer D.O. 03/18/17 Referrals Kathy Israel M.D. (PCP) Forms HOME CARE DOCUMENTATION FORM, IMPORTANT VISIT INFORMATION, WORK / SCHOOL INSTRUCTIONS Patient Instructions ED Wheezing, My [facility] Additional Instructions Rest take medrol dose pack. Follow up with PCP for a recheck. Return to the ER if symptoms worsen.
[2017-03-18] MEDS ORDERED: METH4PAK PO (06:11)
[2017-03-18 06:12] VITALS: BP 125/72; PULSE 90
[2017-03-18] MEDS ORDERED: HYDR5SYP11 PO (06:16)
--- NOTE | 2017-03-18 07:26 | DIAGNOSTIC IMAGING REPORT ---
CHEST 2 VIEWS ROUTINE CLINICAL HISTORY: eval for sob/cough dyspnea COMPARISON STUDY: 07/22/2016 FINDINGS: Cardiac plaque atelectasis/parenchymal scarring left midlung. No evidence for acute infiltrate. Subtle increase in pulmonary vasculature compared to the prior study. No radiographic evidence for congestive failure. IMPRESSION: Chronic and postoperative change. Slight prominence pulmonary vasculature. The above report was generated using voice recognition software. It may contain grammatical, syntax or spelling errors. Electronically signed by: Angel Finney M.D. 03/18/2017 7:25 AM Dictated Date/Time: 03/18/2017 7:24 AM
== END 2017-03-18 05:30 | disposition home or self-care (01) ==
LOC: EDBD 04:36 → C.EDB 04:39
DX: R06.2 Wheezing (principal); R00.0 Tachycardia, unspecified; I10 Essential (primary) hypertension; F32.9 Major depressive disorder, single episode, unspecified; F17.200 Nicotine dependence, unspecified, uncomplicated; Z86.73 Personal history of transient ischemic attack (TIA), and cerebral infarction without residual deficits; Z79.82 Long term (current) use of aspirin; Z79.01 Long term (current) use of anticoagulants; Z79.899 Other long term (current) drug therapy; Z88.8 Allergy status to other drugs, medicaments and biological substances

== ENCOUNTER 2017-03-28 16:50 | Emergency (ER) | payer OTHER ==
[~2017-03-28] VITALS: Ht 175.3 cm; Wt 61.0 kg
[~2017-03-28 16:50] MED LIST changes: +ADVIN25/60 INH; +ALBU18002 INH; +CLR10 PO; +HYDR5SYP11 PO; -MELATAB2 PO; -OXYC-90 PO; +OXYC1TAB3 PO; +PSEU60TA80 PO; -SERT50TA PO; +TADA10TA PO
[2017-03-28 16:55] VITALS: TEMP 36.6; Ht 175.3 cm; Wt 61.0 kg
[2017-03-28] MEDS ORDERED: SODIUM CHLORIDE 0.9% 1000ML 1,000 ML IV STA (17:18)
[2017-03-28] MEDS ORDERED: WARF6TAB PO (17:20)
[2017-03-28] MEDS ORDERED: LSN25 PO (17:20)
[2017-03-28] MEDS ORDERED: OXYC-57 PO (17:20)
[2017-03-28] MEDS ORDERED: ASPI81TA28 PO (17:25)
[2017-03-28 17:35] LABS: BASO % 0.5 %; BASO ABS # 0.05 K/uL (0-0.2); EOS % 2.1 %; EOS ABS # 0.23 K/uL (0-0.5); HEMATOCRIT 51.6 % (42-52); HEMOGLOBIN 17.6 g/dL (14.0-18.0); IG# 0.04 K/uL (0.00-0.02); LYMPH % 30.9 %; LYMPH ABS # 3.36 K/uL (1.2-3.4); MEAN CELL VOLUME 91.2 fL (80-100); MEAN CORPUSCULAR HEMOGLOBIN 31.1 pg (25-34); MEAN CORPUSCULAR HGB CONC 34.1 g/dl (32-36); MEAN PLATELET VOLUME 10.2 fL (7.4-10.4); MONO % 7.4 %; MONO ABS # 0.81 K/uL (0.11-0.59); NEUT % 58.7 %; PLATELET COUNT 238 K/uL (130-400); RED CELL DISTRIBUTION WIDTH CV 13.7 % (11.5-14.5); WHITE BLOOD COUNT 10.89 K/uL (4.8-10.8)
[2017-03-28 17:48] LABS: INR 2.9 (0.9-1.1)
[2017-03-28 17:54] LABS: ALBUMIN 3.2 gm/dl (3.4-5.0); ALT/SGPT 39 U/L (12-78); AST/SGOT 22 U/L (15-37); BLOOD UREA NITROGEN 12 mg/dl (7-18); CALCIUM 8.5 mg/dl (8.5-10.1); CARBON DIOXIDE 31 mmol/L (21-32); CREATININE 1.18 mg/dl (0.60-1.40); GLUCOSE 144 mg/dl (70-99); LIPASE 223 U/L (73-393); POTASSIUM 3.4 mmol/L (3.5-5.1); SODIUM 142 mmol/L (136-145)
[2017-03-28 17:59] LABS: ALKALINE PHOSPHATASE 89 U/L (45-117); TOTAL PROTEIN 6.9 gm/dl (6.4-8.2)
--- NOTE | 2017-03-28 18:08 | EMERGENCY ROOM VISIT NOTE ---
History Report prepared by Richard: Austin Finley Under the Supervision of: Dr. Dedrick Abebe M.D. First contact with patient: 17:02 Chief Complaint: NEURO SYMPTOMS Stated Complaint: STROKE SYMPTOMS History of Present Illness The patient is a 66 year old male who presents to the Emergency Room with complaints of resolved left hand shaking that began 30 minutes ago. He reports that he has a history of a stroke that occurred last year with residual slurred speech, facial droop, and left sided weakness. He states that since the stroke , he has improved but reports that he is still not back to normal. The patient states that he is still experiencing a problem with left arm weakness and stiffness. He reports that he is concerned that he is currently having a stroke. He states that he is currently back to normal. 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 The patient denies lower extremity weakness, abdominal pain, and diarrhea. He reports that he has a history of asthma, but admits this is resolved. The patient states that he smokes a pack a day. He reports that he recently was diagnosed with bronchitis, which he reports he is experiencing a cough from. Source of History: patient Onset: 30 minutes [employer] Position: hand (left) Quality: other (shaking) Timing: resolved Associated Symptoms: + cough, No abdominal pain, No diarrhea, No weakness Review of Systems See HPI for pertinent positives and negatives. A total of ten systems were reviewed and were otherwise negative. Past Medical & Surgical Medical Problems: (1) Acute kidney injury (2) Acute right MCA stroke (3) Alcohol abuse (4) Depression (5) Hypertension Family History Patient reports no known family medical history. Social History Smoking Status: Current Some Day Smoker Alcohol Use: heavy Drug Use: none Housing Status: lives alone Occupation Status: disabled Current/Historical Medications Scheduled Aspirin (Aspirin Ec), 81 MG PO DAILY Atorvastatin (Lipitor), 40 MG PO QPM Tom [place] Tar Extract (Ionil-T), 1 APPLN TOP HS Fluticasone Prop/Salmeterol (Advair Diskus 250/50 60 Dose), 1 PUFF INH BID Lisinopril (Lisinopril), 2.5 MG PO DAILY Loratadine (Claritin), 10 MG PO DAILY Metoprolol Tartrate (Lopressor) (Lopressor), 25 MG PO DAILY Triamcinolone Acet (Aristocort 0.1%), 1 APPLN TOP BID Warfarin Sod (Coumadin), 6 MG PO 4XWK Warfarin Sodium (Coumadin), 9 MG PO 3XWK Scheduled PRN Acetaminophen (Apap), 650 MG PEG Q4 PRN for Pain or Fever Albuterol Sulfate (Proair Respiclick), 2 PUFFS INH Q6 PRN for wheezing Baclofen (Lioresal), 10 MG PO DAILY PRN for Muscle Spasms Oxycodone/Acetaminophen 5MG/325MG (Percocet 5MG/325MG), 1 TAB PO DAILY PRN for Pain Pseudoephedrine-Guaifenesin (Mucinex D), 1 TAB PO BID PRN for congestion Tadalafil (Cialis), 10 MG PO UD PRN for erectile dysfunction Allergies Coded Allergies: Lorazepam (Verified Adverse Reaction, Intermediate, DELIRIUM, 03/28/17) excessive sedation Physical Exam Vital Signs Date Time Temp Pulse Resp B/P (MAP) Pulse Ox O2 Delivery O2 Flow Rate FiO2 03/28/17 22:37 62 18 135/73 95 Room Air 03/28/17 22:06 61 18 127/77 95 Room Air 03/28/17 19:11 57 18 131/74 97 Room Air 03/28/17 17:23 61 03/28/17 16:55 36.6 80 20 164/82 95 Room Air Physical Exam GENERAL: Awake, alert, well-appearing, in no distress HENT: Normocephalic, atraumatic. Dry mucous membranes, baseline left facial droop, EYES: Normal conjunctiva. Sclera non-icteric. NECK: Supple. No nuchal rigidity. FROM. No JVD. RESPIRATORY: Clear to auscultation. CARDIAC: Regular rate, normal rhythm. Extremities warm and well perfused. Pulses equal. ABDOMEN: Soft, non-distended. No tenderness to palpation. No rebound or guarding. No masses. RECTAL: Deferred. MUSCULOSKELETAL: Chest examination reveals no tenderness. The back is symmetrical on inspection without obvious abnormality. There is no CVA tenderness to palpation. No joint edema. LOWER EXTREMITIES: Calves are equal size bilaterally and non-tender. No edema. No discoloration. 5/5 strength BLE. NEURO: Normal sensorium. No sensory or motor deficits noted. Mild weakness in left upper extremity at baseline. Mild dysarthria, aphasia also at baseline. No other focal deficits. SKIN: No rash or jaundice noted. Medical Decision & Procedures ER Provider Diagnostic Interpretation: Radiology results as stated below per my review and radiologist interpretation: CHEST ONE VIEW PORTABLE CLINICAL HISTORY: Abdominal pain. COMPARISON STUDY: Chest radiograph March 18, 2017. FINDINGS: There are median sternotomy wires and clips from bypass grafting. There is no lucency under the hemidiaphragms to suggest pneumoperitoneum. There is no evidence for pulmonary edema. No consolidation is identified. Cardiomediastinal silhouette is normal. Linear left lung opacities likely reflect atelectasis or scarring. Lower lung nodular densities may reflect nipple shadows. IMPRESSION: 1. No acute cardiopulmonary findings. 2. Bilateral lower lung nodular densities. These favor nipple shadows however follow-up nonemergent PA and shallow oblique radiographs of the chest with nipple markers are recommended. Electronically signed by: Jurgen Jones M.D. 03/28/2017 6:19 PM Dictated Date/Time: 03/28/2017 6:[address] OF THE HEAD WITHOUT CONTRAST CLINICAL HISTORY: Left upper extremity weakness. Stroke symptoms. COMPARISON STUDY: Head CT and MRI of the brain July 02, 2016. CT DOSE: 614.27 mGy.cm TECHNIQUE: Helical axial images of the head were obtained without IV contrast. Automated exposure control was utilized for the study. A dose lowering technique was utilized adhering to the principles of ALARA. FINDINGS: No acute intracranial hemorrhage, midline shift or mass effect is present. Extensive encephalomalacia within the right MCA territory is unchanged and consistent with old infarct. There is also an old infarct within the left parietal lobe. Ventricles system is stable. Basilar cisterns are patent. There are no extra-axial collections. There are no findings to suggest acute dural sinus thrombosis or acute territorial infarct. There are no significant calvarial abnormalities. Visualized portions of the sinuses and mastoid air cells are clear. IMPRESSION: 1. No acute intracranial findings. 2. Large old right MCA territory infarct and scattered additional old infarcts which are unchanged. Electronically signed by: Jurgen Jones M.D. 03/28/2017 6:24 PM Dictated Date/Time: 03/28/2017 6:19 PM MRI OF THE BRAIN WITHOUT CONTRAST CLINICAL HISTORY: Left upper extremity weakness. Possible transient ischemic attack. COMPARISON STUDY: MRI of the brain July 02, [address] performed earlier today. TECHNIQUE: Utilizing a 1.5 Ladonna magnet and dedicated coil, multiplanar, multiecho imaging of the brain was performed without IV contrast. FINDINGS: A few foci of increased signal intensity at the periphery of the old right MCA territory infarct are artifactual. There is no evidence for acute infarct on this examination. Extensive encephalomalacia within the right MCA territory is consistent with an old infarct. This is unchanged since MRI of July 02, 2016. Associated laminar necrosis is noted with inherent T1 hyperintensity. Ventricular system is stable. Basilar cisterns are patent. Small old infarcts within the left parietal and frontal lobes are noted. A few scattered white matter T2 hyperintense foci suggest mild small vessel disease. No intracranial masses identified on this unenhanced examination. Orbits are unremarkable. Calvarial signal is maintained. Flow-voids for the major intracranial vessels are present. Note is made of Wallerian degeneration from the old right MCA territory infarct. IMPRESSION: 1. No acute intracranial findings. 2. No change in appearance of the brain since MRI of July 02, 2016 with a large old right MCA territory infarct and scattered additional old infarcts, as described above. Electronically signed by: Jurgen Jones M.D. 03/28/2017 10:16 PM Dictated Date/Time: 03/28/2017 10:08 PM Laboratory Results 03/28/17 17:20 Red Blood Count 5.66, Mean Corpuscular Volume 91.2, Mean Corpuscular Hemoglobin 31.1, Mean Corpuscular Hemoglobin Concent 34.1, Mean Platelet Volume 10.2, Neutrophils (%) (Auto) 58.7, Lymphocytes (%) (Auto) 30.9, Monocytes (%) (Auto) 7.4, Eosinophils (%) (Auto) 2.1, Basophils (%) (Auto) 0.5, Neutrophils # (Auto) 6.40, Lymphocytes # (Auto) 3.36, Monocytes # (Auto) 0.81, Eosinophils # (Auto) 0.23, Basophils # (Auto) 0.05 03/28/17 17:20 Test 03/28/17 17:20 03/28/17 19:05 White Blood Count 10.89 K/uL (4.8-10.8) Red Blood Count 5.66 M/uL (4.7-6.1) Hemoglobin 17.6 g/dL (14.0-18.0) Hematocrit 51.6 % (42-52) Mean Corpuscular Volume 91.2 fL (80-100) Mean Corpuscular Hemoglobin 31.1 pg (25-34) Mean Corpuscular Hemoglobin Concent 34.1 g/dl (32-36) Platelet Count 238 K/uL (130-400) Mean Platelet Volume 10.2 fL (7.4-10.4) Neutrophils (%) (Auto) 58.7 % Lymphocytes (%) (Auto) 30.9 % Monocytes (%) (Auto) 7.4 % Eosinophils (%) (Auto) 2.1 % Basophils (%) (Auto) 0.5 % Neutrophils # (Auto) 6.40 K/uL (1.4-6.5) Lymphocytes # (Auto) 3.36 K/uL (1.2-3.4) Monocytes # (Auto) 0.81 K/uL (0.11-0.59) Eosinophils # (Auto) 0.23 K/uL (0-0.5) Basophils # (Auto) 0.05 K/uL (0-0.2) RDW Standard Deviation 46.0 fL (36.4-46.3) RDW Coefficient of Variation 13.7 % (11.5-14.5) Immature Granulocyte % (Auto) 0.4 % Immature Granulocyte # (Auto) 0.04 K/uL (0.00-0.02) Prothrombin Time 29.4 SECONDS (9.0-12.0) Prothromb Time International Ratio 2.9 (0.9-1.1) Anion Gap 4.0 mmol/L (3-11) Est Creatinine Clear Calc Drug Dose 52.4 ml/min Estimated GFR () 73.6 Estimated GFR (Non- 63.5 BUN/Creatinine Ratio 10.1 (10-20) Calcium Level 8.5 mg/dl (8.5-10.1) Total Bilirubin 0.6 mg/dl (0.2-1) Direct Bilirubin < 0.1 mg/dl (0-0.2) Aspartate Amino Transf (AST/SGOT) 22 U/L (15-37) Alanine Aminotransferase (ALT/SGPT) 39 U/L (12-78) Alkaline Phosphatase 89 U/L (45-117) Troponin I < 0.015 ng/ml (0-0.045) Total Protein 6.9 gm/dl (6.4-8.2) Albumin 3.2 gm/dl (3.4-5.0) Lipase 223 U/L (73-393) Urine Color YELLOW Urine Appearance CLEAR (CLEAR) Urine pH 5.5 (4.5-7.5) Urine Specific [place] 1.014 (1.000-1.030) Urine Protein 3+ (NEG) Urine Glucose (UA) NEG (NEG) Urine Ketones NEG (NEG) Urine Occult Blood TRACE (NEG) Urine Nitrite NEG (NEG) Urine Bilirubin NEG (NEG) Urine Urobilinogen NEG (NEG) Urine Leukocyte Esterase NEG (NEG) Urine WBC (Auto) 1-5 /hpf (0-5) Urine RBC (Auto) 0-4 /hpf (0-4) Urine Hyaline Casts (Auto) 1-5 /lpf (0-5) Urine Epithelial Cells (Auto) 5-10 /lpf (0-5) Urine Bacteria (Auto) NEG (NEG) Laboratory results reviewed by me Medications Administered Medications (Trade) Dose Ordered Sig/Rena Route Start Time Stop Time Status Last Admin Dose Admin Sodium Chloride 1,000 ml @ 999 mls/hr Q1H1M STAT IV 03/28/17 17:18 03/28/17 18:18 DC 03/28/17 18:03 999 MLS/HR ECG Indication: weakness Rate (beats per minute): 65 Rhythm: normal sinus Findings: RBBB (incomplete), other (Normal axis) Comparison ECG Date: 03/18/17 Change: no significant change ED Course 1709: The patient was evaluated in room B10. A complete history and physical exam was performed. 1913: I reevaluated the patient and he is doing well. Medical Decision I reviewed the patient's past medical history, medications, and the nursing notes as described above. The patient's presentation and history were concerning for TIA CVA, ICH, pneumonia, bronchitis, UTI, dehydration, and electrolyte or metabolic abnormality. The patient is a 66 yo gentleman with a pmhx of large CVA with baseline aphasia/ dysarthria, left facial droop and and LUE weakness who presents to the ED concerned for transient 20 minute episode of left hand shaking, for which he was told to go to the ED for evaluation of stroke if this ever happended. On arrival the patient is well-appearing, in NAD, AFVSS. Neuro intact at his baseline. Labs unremarkable. CXR negative. CT head unchanged. MRI brain unchanged. Given sx that patient describes not necessarily c/w stroke, now at baseline, with reassuring/uchanged imaging. No indication for admission at this time. Plan for outpatient f/u. Findings and plan for follow-up reviewed with patient. Patient agreeable and d/c'd per discharge instructions. Medication Reconcilliation Current Medication List: was personally reviewed by me Blood Pressure Screening Patient's blood pressure: Elevated blood pressure Blood pressure disposition: Elevated BP felt to be situational Impression Primary Impression: Tremor of left hand Scribe Attestation The scribe's documentation has been prepared under my direction and personally reviewed by me in its entirety. I confirm that the note above accurately reflects all work, treatment, procedures, and medical decision making performed by me. Departure Information Referrals No Doctor, Assigned (PCP) Patient Instructions My [facility], TIA Additional Instructions Please follow up with your primary care physician and neurologist within the next week for re-evaluation. The cause of your symptoms is unclear at this time however they were resolved during her observation period. A shaking hand is not typically a symptom that is consistent with stroke or TIA. Otherwise, your exam, EKG, chest xray, CT scan of your head, MRI of your brain, and lab results did not show signs of an emergent condition at this time. Return to the emergency department for worsening symptoms as described in the accompanying instructions.
--- NOTE | 2017-03-28 18:20 | DIAGNOSTIC IMAGING REPORT ---
CHEST ONE VIEW PORTABLE CLINICAL HISTORY: Abdominal pain. COMPARISON STUDY: Chest radiograph March 18, 2017. FINDINGS: There are median sternotomy wires and clips from bypass grafting. There is no lucency under the hemidiaphragms to suggest pneumoperitoneum. There is no evidence for pulmonary edema. No consolidation is identified. Cardiomediastinal silhouette is normal. Linear left lung opacities likely reflect atelectasis or scarring. Lower lung nodular densities may reflect nipple shadows. IMPRESSION: 1. No acute cardiopulmonary findings. 2. Bilateral lower lung nodular densities. These favor nipple shadows however follow-up nonemergent PA and shallow oblique radiographs of the chest with nipple markers are recommended. Electronically signed by: Jurgen Jones M.D. 03/28/2017 6:19 PM Dictated Date/Time: 03/28/2017 6:16 PM
--- NOTE | 2017-03-28 18:26 | DIAGNOSTIC IMAGING REPORT ---
CT OF THE HEAD WITHOUT CONTRAST CLINICAL HISTORY: Left upper extremity weakness. Stroke symptoms. COMPARISON STUDY: Head CT and MRI of the brain July 02, 2016. CT DOSE: 614.27 mGy.cm TECHNIQUE: Helical axial images of the head were obtained without IV contrast. Automated exposure control was utilized for the study. A dose lowering technique was utilized adhering to the principles of ALARA. FINDINGS: No acute intracranial hemorrhage, midline shift or mass effect is present. Extensive encephalomalacia within the right MCA territory is unchanged and consistent with old infarct. There is also an old infarct within the left parietal lobe. Ventricles system is stable. Basilar cisterns are patent. There are no extra-axial collections. There are no findings to suggest acute dural sinus thrombosis or acute territorial infarct. There are no significant calvarial abnormalities. Visualized portions of the sinuses and mastoid air cells are clear. IMPRESSION: 1. No acute intracranial findings. 2. Large old right MCA territory infarct and scattered additional old infarcts which are unchanged. Electronically signed by: Jurgen Jones M.D. 03/28/2017 6:24 PM Dictated Date/Time: 03/28/2017 6:19 PM
--- NOTE | 2017-03-28 22:17 | DIAGNOSTIC IMAGING REPORT ---
MRI OF THE BRAIN WITHOUT CONTRAST CLINICAL HISTORY: Left upper extremity weakness. Possible transient ischemic attack. COMPARISON STUDY: MRI of the brain July 02, [address] performed earlier today. TECHNIQUE: Utilizing a 1.5 Ladonna magnet and dedicated coil, multiplanar, multiecho imaging of the brain was performed without IV contrast. FINDINGS: A few foci of increased signal intensity at the periphery of the old right MCA territory infarct are artifactual. There is no evidence for acute infarct on this examination. Extensive encephalomalacia within the right MCA territory is consistent with an old infarct. This is unchanged since MRI of July 02, 2016. Associated laminar necrosis is noted with inherent T1 hyperintensity. Ventricular system is stable. Basilar cisterns are patent. Small old infarcts within the left parietal and frontal lobes are noted. A few scattered white matter T2 hyperintense foci suggest mild small vessel disease. No intracranial masses identified on this unenhanced examination. Orbits are unremarkable. Calvarial signal is maintained. Flow-voids for the major intracranial vessels are present. Note is made of Wallerian degeneration from the old right MCA territory infarct. IMPRESSION: 1. No acute intracranial findings. 2. No change in appearance of the brain since MRI of July 02, 2016 with a large old right MCA territory infarct and scattered additional old infarcts, as described above. Electronically signed by: Jurgen Jones M.D. 03/28/2017 10:16 PM Dictated Date/Time: 03/28/2017 10:08 PM
[2017-03-28 22:37] VITALS: BP 135/73; PULSE 62; O2SAT 95
== END 2017-03-28 22:49 | disposition home or self-care (01) ==
LOC: C.EDB 16:51
DX: R25.1 Tremor, unspecified (principal); I69.328 Other speech and language deficits following cerebral infarction; I69.392 Facial weakness following cerebral infarction; I69.352 Hemiplegia and hemiparesis following cerebral infarction affecting left dominant side; I45.10 Unspecified right bundle-branch block; F17.200 Nicotine dependence, unspecified, uncomplicated; F10.10 Alcohol abuse, uncomplicated; F32.9 Major depressive disorder, single episode, unspecified; I10 Essential (primary) hypertension; Z79.82 Long term (current) use of aspirin; Z79.01 Long term (current) use of anticoagulants

== ENCOUNTER 2017-03-31 23:04 | Inpatient (IN) | payer OTHER ==
[~2017-03-31] VITALS: Ht 175.3 cm; Wt 59.0 kg
[~2017-03-31 23:04] MED LIST changes: -ASPCH81X PO; +ASPI81TA28 PO; -HYDR5SYP11 PO; -LISI5TAB PO; +LSN25 PO; +OXYC-57 PO; -OXYC1TAB3 PO; -POLY335019 PO; +WARF6TAB PO
--- NOTE | 2017-03-31 23:36 | EMERGENCY ROOM VISIT NOTE ---
History Report prepared by Richard: Ben Almodovar Under the Supervision of: Dr. Fadi Wilson M.D. 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 He states that he was getting out of the tub when he reached for the faucet, which he states detached from the wall and he fell and injured his left eye, left shoulder, left elbow, left side ribs , and left springer. He currently rates his pain a 7/10 in severity. He states that he lay down for 10-20 minutes after the fall. He denies any LOC, headache or neck pain. He was recently seen in the ED two days ago for left arm twitching which has resolved. He has a history of CVA one year ago. He has a history of depression. He states that he used to take Zoloft, though no longer takes it. He denies taking any other medication. He states that he lives home alone, though is in a relationship. 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 Review of Systems See HPI for pertinent positives & negatives. A total of 10 systems reviewed and were otherwise negative. Past Medical & Surgical Medical Problems: (1) Acute kidney injury (2) Acute right MCA stroke (3) Alcohol abuse (4) Depression (5) Hypertension Family History Patient reports no known family medical history. Social History Smoking Status: Current Some Day Smoker Alcohol Use: heavy Drug Use: none Marital Status: in relationship Housing Status: lives alone Occupation Status: disabled Current/Historical Medications Scheduled Aspirin (Aspirin Ec), 81 MG PO DAILY Atorvastatin (Lipitor), 40 MG PO QPM [place] Tar Extract (Ionil-T), 1 APPLN TOP HS Fluticasone Prop/Salmeterol (Advair Diskus 250/50 60 Dose), 1 PUFF INH BID Lisinopril (Lisinopril), 2.5 MG PO DAILY Loratadine (Claritin), 10 MG PO DAILY Metoprolol Tartrate (Lopressor) (Lopressor), 25 MG PO DAILY Triamcinolone Acet (Aristocort 0.1%), 1 APPLN TOP BID Warfarin Sod (Coumadin), 6 MG PO 4XWK Warfarin Sodium (Coumadin), 9 MG PO 3XWK Scheduled PRN Acetaminophen (Apap), 650 MG PEG Q4 PRN for Pain or Fever Albuterol Sulfate (Proair Respiclick), 2 PUFFS INH Q6 PRN for wheezing Baclofen (Lioresal), 10 MG PO DAILY PRN for Muscle Spasms Oxycodone/Acetaminophen 5MG/325MG (Percocet 5MG/325MG), 1 TAB PO DAILY PRN for Pain Pseudoephedrine-Guaifenesin (Mucinex D), 1 TAB PO BID PRN for congestion Tadalafil (Cialis), 10 MG PO UD PRN for erectile dysfunction Allergies Coded Allergies: Lorazepam (Verified Adverse Reaction, Intermediate, DELIRIUM, 03/28/17) excessive sedation Physical Exam Vital Signs Date Time Temp Pulse Resp B/P (MAP) Pulse Ox O2 Delivery O2 Flow Rate FiO2 04/01/17 03:24 78 16 138/85 96 Room Air 04/01/17 01:43 58 16 102/88 97 Room Air 04/01/17 00:40 69 18 121/74 96 Room Air 03/31/17 23:15 37.0 61 18 105/68 97 Room Air Physical Exam GENERAL: Patient is well appearing and in no acute distress. HEENT: No acute trauma, normocephalic atraumatic, mucous membranes moist, no nasal congestion, no scleral icterus. NECK: No stridor, no adenopathy, no meningismus, trachea is midline. LUNGS: No dyspnea. Clear to auscultation and equal bilaterally. No wheeze, no rhonchi. HEART: Regular rate and rhythm. No murmurs, rubs, gallops appreciated. ABDOMEN: Soft, nontender, bowel sounds positive, no masses appreciated, no peritonitis. BACK: No midline tenderness, no CVA tenderness EXTREMITIES: Normal motion all extremities, no cyanosis, no edema. NEUROLOGIC: Alert and oriented, no acute motor or sensory deficits, no focal weakness, cranial nerves grossly intact. Left facial droop with slurred speech. Left arm weakness and rigidity and weakness of left leg. SKIN: No rash, no jaundice, no diaphoresis. Bruising/contusion of left face and left periorbital. 1.5 cm dried laceration over left lateral eyebrow. Abrasions over left elbow. Bruising of distal left bicep. Contusion over anterior left shoulder. Abrasion/contusion over left lower springer. Medical Decision & Procedures ER Provider Diagnostic Interpretation: Radiology results and stated below per my review and radiologist interpretation: ONE VIEW CHEST with FOUR VIEWS LEFT RIBS: No pneumothorax, no infiltrate, normal cardiac border. Sternotomy wires intact. No obvious rib fractures or dislocations. No effusion. TWO VIEWS LEFT SHOULDER: No fracture. No dislocation. TWO VIEWS LEFT ELBOW: No fracture. No dislocation. Moderate degenerative changes. TWO VIEWS LEFT TIB-FIB: No fracture. No dislocation. Screws in distal tibia intact. Preliminary Findings Only -- See Final Report for Complete Findings CT HEAD: Compared to 03/28/17. No intracranial hemorrhage or skull fracture. Chronic findings similar to prior. Radiologist: Kathy Dave M.D. Study ready at 01:00 and initial results transmitted at 01:32 Medications Administered Medications (Trade) Dose Ordered Sig/Rena Route Start Time Stop Time Status Last Admin Dose Admin Oxycodone/ Acetaminophen (Percocet 5-325mg Tab) 1 tab NOW ONCE PO 04/01/17 01:45 04/01/17 01:46 DC 04/01/17 01:42 1 TAB ED Course 2321: The patient was evaluated in room C9. A complete history and physical exam was performed. 2342: I reaffirmed with the patient and he states that he does feel safe at home. He denies having any thoughts of harming himself or others. He agrees that we have no reason to send him to [place] unless we find an injury. 0137: I reassessed the patient at this time. He is feeling better and resting comfortably. I discussed the results and treatment plan with the patient. I answered all pertaining questions that he had. He expressed understanding and verbalized agreement. The patient will be discharged home. 0158: I reassessed the patient at this time. The patient refuses to leave. He is demanding to be observed by the hospitalist. He now states that he had a seizure in his left arm, which caused him to fall. 0210: I spoke with jt Rodriguez. We discussed the patients case. The patient will be evaluated by the [facility] for further management. Medical Decision 66 yr old male arrives for evaluation post fall at home. Initially stating he was getting out of tub when the faucet broke, he fell, and then water poured everywhere. This occurred 12 hours earlier. He has lac to eyebrow which is outside of window to close, which regardless is not bleeding nor gapping. Multiple contusions/abrasions thus extensive imaging chest, ribs, arm, springer without evidence clear fracture. CT Head done as head injury and on Coumadin which was negative. Multiple checks with patient stating he feels safe going home. I discussed discharge and he requested I write Rx percocet which I noted I did not feel comfortable doing. Shortly there-after patient noting he doesn' t feel safe at home. Refuses Rehab evaluation and requested hospitalist evaluation as he is worried he may have something wrong with him. Noted to him the extensive testing just done a few days ago when he had arm shaking and that no clear indication to repeat any of this. At this time he notes that he has been having more arm shaking (despite saying earlier that it hadn't re-occurred today nor here). Regardless, patient now stating he does not feel safe going home, is requesting hospitalist evaluation, and clearly has been falling given findings on exam. Discussed with hospitalist who will evaluate further. Head Trauma GCS Score: 15 Medication Reconcilliation Current Medication List: was personally reviewed by me Blood Pressure Screening Patient's blood pressure: Normal blood pressure Consults Time Called: 209 Consulting Physician: jt Rodriguez I spoke with jt Rodriguez. We discussed the patients case. The patient will be evaluated by the [facility] for further management. Impression Primary Impression: Fall Additional Impressions: Contusion of multiple sites Laceration of eyebrow, left Head injury, closed Scribe Attestation The scribe's documentation has been prepared under my direction and personally reviewed by me in its entirety. I confirm that the note above accurately reflects all work, treatment, procedures, and medical decision making performed by me. Departure Information Dispostion Being Evaluated By Hospitalist Referrals No Doctor, Assigned (PCP) Forms HOME CARE DOCUMENTATION FORM, IMPORTANT VISIT INFORMATION Patient Instructions My [facility] Additional Instructions Multiple xrays were done revealing no clear evidence of fractures, but these will be further read by Radiologists tomorrow as well for further findings. It is very important that you follow up with your primary provider to discuss further how you are doing and whether further testing is necessary. If you feel you are no longer safe at home or are concerned you have new or unusual symptoms, call 911 or return to emergency department. You have been examined and treated today on an emergency basis only. This is not a substitute for, or an effort to provide, complete comprehensive medical care. It is impossible to recognize and treat all injuries or illnesses in a single emergency department visit. It is therefore important that you follow up closely with your Primary Physician. Call as soon as possible for an appointment so you can review all labs, imaging and other testing that you had. Return to Emergency Department, call 911 or seek immediate medical attention if you feel your symptoms are worsening. Problem Qualifiers
[2017-04-01] MEDS ORDERED: OXYCODONE/ACETAMINOPHEN 5-325 TAB PO ONE (01:45)
[2017-04-01] MEDS ORDERED: BACLOFEN 10 MG TAB PO PRN ×2 (04:30→06:00)
[2017-04-01] MEDS ORDERED: ACETAMINOPHEN 325 MG TAB PO PRN (04:30)
--- NOTE | 2017-04-01 05:10 | History and Physical ---
History & Physical Date & Time of Service: Apr 01, 2017 at 04:36 Chief Complaint: Upper Arm Twitching Primary Care Physician: No Doctor, Assigned History of Present Illness Source: patient, hospital records Patient is a 66 year old with a past medical history of an MCA stroke in 2016, HTN, HLD, and previously on a PEG tube that presents 11 hours after a fall in the bath tub. The patient states he began having shaking in his left arm and weakness in his left thigh, similar for an episode he was evaluated in the emergency department for 2 days prior. He began to fall while trying to leave the bathtub and grabbed the faucet which was ripped out of the wall. He injured his left eye, shoulder, elbow, and springer during the fall. The patient had to stay at home to fix the leaking and then afterwards came into the hospital. The patient at this time states that is not having a headache, weakness, or any residual symptoms but fears the events recurring and having another fall. Past Medical/Surgical History Medical Problems: (1) Alcohol abuse Status: Chronic Family History Patient reports no known family medical history. Social History Smoking Status: Current Some Day Smoker Smokeless Tobacco Use: No Alcohol Use: history of abuse Drug Use: none Marital Status: in relationship Occupational Status: disabled Immunizations History of Influenza Vaccine: Unknown History of Tetanus Vaccine?: Unknown History of Pneumococcal: Unknown History of Hepatitis B Vaccine: Unknown Multi-Drug Resistant Organisms History of MDRO: No Allergies Coded Allergies: Lorazepam (Verified Adverse Reaction, Intermediate, DELIRIUM, 03/28/17) excessive sedation Home Medications Scheduled Aspirin (Aspirin Ec), 81 MG PO DAILY Atorvastatin (Lipitor), 40 MG PO QPM [place] Tar Extract (Ionil-T), 1 APPLN TOP HS Fluticasone Prop/Salmeterol (Advair Diskus 250/50 60 Dose), 1 PUFF INH BID Lisinopril (Lisinopril), 2.5 MG PO DAILY Loratadine (Claritin), 10 MG PO DAILY Metoprolol Tartrate (Lopressor) (Lopressor), 25 MG PO DAILY Triamcinolone Acet (Aristocort 0.1%), 1 APPLN TOP BID Warfarin Sod (Coumadin), 6 MG PO 4XWK Warfarin Sodium (Coumadin), 9 MG PO 3XWK Scheduled PRN Acetaminophen (Apap), 650 MG PEG Q4 PRN for Pain or Fever Albuterol Sulfate (Proair Respiclick), 2 PUFFS INH Q6 PRN for wheezing Baclofen (Lioresal), 10 MG PO DAILY PRN for Muscle Spasms Oxycodone/Acetaminophen 5MG/325MG (Percocet 5MG/325MG), 1 TAB PO DAILY PRN for Pain Pseudoephedrine-Guaifenesin (Mucinex D), 1 TAB PO BID PRN for congestion Tadalafil (Cialis), 10 MG PO UD PRN for erectile dysfunction Review of Systems Constitutional: No fever, No chills, No fatigue ENT: No sore throat, No tinnitus Respiratory: No cough, No sputum, No shortness of breath, No dyspnea on exertion Cardiovascular: No chest pain, No palpitations Abdomen: No pain, No nausea, No vomiting, No diarrhea, No constipation Neurologic: + weakness, No numbness/tingling, No vertigo, No balance problems Physical Exam Vital Signs Date Time Temp Pulse Resp B/P (MAP) Pulse Ox O2 Delivery O2 Flow Rate FiO2 04/01/17 03:24 78 16 138/85 96 Room Air 04/01/17 01:43 58 16 102/88 97 Room Air 04/01/17 00:40 69 18 121/74 96 Room Air 03/31/17 23:15 37.0 61 18 105/68 97 Room Air General Appearance: WD/WN, no apparent distress Head: normocephalic, + pertinent finding (laceration over left eye) Eyes: normal inspection, sclerae normal Neck: supple, no carotid bruits Respiratory/Chest: chest non-tender, lungs clear, normal breath sounds Cardiovascular: regular rate, rhythm, no edema, no gallop Abdomen/GI: normal bowel sounds, non tender, soft Extremities/Musculoskelatal: normal inspection, no calf tenderness 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 3/5 strength in LUE and 5/5 in RUE. Residual left sided facial droop from previous stroke. PERRL. EOMI. No tremor of shaking during evaluation.) Impression Assessment and Plan Patient is a 66 year old with a past medical history of an MCA stroke in 2016, HTN, HLD, and previously on a PEG tube that presents 11 hours after a fall in the bath tub 1) Weakness - Admit to Med/Surg - Patient concerned about possible seizures although patient fully conscious during episodes - CT head shows no acute intracranial abnormalities - MRI brain from previous ED visit 2 days ago shows no acute changes - Neurology consult - Neuro checks 2) Fall - No acute fractures on X-ray - Fall precautions 3) Hypertension - Lisinopril - Lopressor 4) Hyperlipidemia - Atorvastatin 5) Asthma - Advair Discus 6) Drug Use - Patient has history of alcoholism - watch for withdrawal like symptoms - Patient has questionable history of Percocet abuse --> Limit pain medications and restrict opiates 7) DVT - Resume home Coumadin - Confirm with patient 6mg/9mg scheduling 8) Code Status - Full Resuscitation Attending addendum: I have physically seen this patient, have supervised the medical residents activities, and agree with the H&P unless as otherwise noted. Assessment and Plan: Left arm tremor and weakness/residual left hemiparesis status post right MCA territory stroke December 2015/history of left frozen shoulder manipulation under anesthesia-- Admit to the medical floor MRI brain 2 days ago redemonstrates previous right MCA stroke Neuro checks Order EEG Consult PT/OT/director of social work Consult neurology Question neurologic versus orthopedic issue Continue medications for hypertension, cholesterol and asthma as above. Level of Care Med/Surg Advanced Directives Existing Advance Directive: No Existing Living Will: No Existing Power of Dietary Assistant: No Resuscitation Status FULL RESUSCITATION VTE Prophylaxis VTE Risk Assessment Done? Y/N: Yes Risk Level: Moderate Given or contraindicated: Warfarin (Coumadin) Resident Tracking Resident Involvement: Resident Care Provided Care Provided: Adult Hospital Medicine
[2017-04-01 05:11] LABS: BASO % 0.2 %; BASO ABS # 0.03 K/uL (0-0.2); EOS % 1.3 %; EOS ABS # 0.17 K/uL (0-0.5); HEMOGLOBIN 15.4 g/dL (14.0-18.0); IG# 0.04 K/uL (0.00-0.02); LYMPH % 28.8 %; LYMPH ABS # 3.89 K/uL (1.2-3.4); MEAN CELL VOLUME 90.7 fL (80-100); MEAN CORPUSCULAR HGB CONC 34.2 g/dl (32-36); MEAN PLATELET VOLUME 10.1 fL (7.4-10.4); MONO % 8.2 %; MONO ABS # 1.11 K/uL (0.11-0.59); NEUT % 61.2 %; NEUT ABS # 8.27 K/uL (1.4-6.5); PLATELET COUNT 206 K/uL (130-400); RED CELL DISTRIBUTION WIDTH SD 45.9 fL (36.4-46.3); WHITE BLOOD COUNT 13.51 K/uL (4.8-10.8)
[2017-04-01 05:25] VITALS: BMI 20.1
[2017-04-01 05:29] LABS: CALCIUM 8.1 mg/dl (8.5-10.1); CREATININE 1.17 mg/dl (0.60-1.40); POTASSIUM 3.3 mmol/L (3.5-5.1)
[2017-04-01 05:53] LABS: INR 4.4 (0.9-1.1)
[2017-04-01 05:59] VITALS: BP 126/76; PULSE 55; TEMP 36.4; Ht 175.3 cm; Wt 59.0 kg
[2017-04-01] MEDS: ACETAMINOPHEN 325 MG TAB PO PRN ×2 (06:27→19:56)
--- NOTE | 2017-04-01 07:05 | DIAGNOSTIC IMAGING REPORT ---
HEAD CT NONCONTRAST CT DOSE: 614.27 mGy.cm HISTORY: left head injury TECHNIQUE: Multiaxial CT images of the head were performed without the use of intravenous contrast. Automated exposure control was utilized for this study. A dose lowering technique was utilized adhering to the principles of ALARA. Comparison: None. Findings: The paranasal sinuses and mastoid air cells are clear. The calvarium and skull base are intact. The ventricles and sulci are within normal limits. There is no mass, hematoma, midline shift, or acute infarct. Old infarcts are again noted. Impression: No significant change compared to the prior study. No acute intracranial abnormality. Electronically signed by: José Luis Woodson M.D. 04/01/2017 7:03 AM Dictated Date/Time: 04/01/2017 7:01 AM
--- NOTE | 2017-04-01 07:06 | DIAGNOSTIC IMAGING REPORT ---
L ELBOW 2 VIEWS CLINICAL HISTORY: LEFT ELBOW PAIN COMPARISON: None. DISCUSSION: The examination is moderately limited from a positioning standpoint. No fractures are visualized the provided 2 images. If symptoms persist, repeat imaging should be considered IMPRESSION: 1. Significantly limited study from a positioning standpoint 2. No acute fractures or dislocations are visualized on the provided 2 images 3. Additional imaging should be considered if symptoms persist Electronically signed by: Alex Lawson M.D. 04/01/2017 7:05 AM Dictated Date/Time: 04/01/2017 7:04 AM
--- NOTE | 2017-04-01 07:18 | DIAGNOSTIC IMAGING REPORT ---
L RIBS UNILATERAL WITH PA CHEST CLINICAL HISTORY: left rib pain s/p fall in shower COMPARISON STUDY: Chest 03/28/2017. FINDINGS: No pleural effusions. No pneumothorax. A few scarlike linear densities within the left mid to lower lung zone. The heart is normal in size. Poststernotomy changes. Left ninth and 10th lateral rib deformities. A represent old, healed fractures. No acute fractures identified within the ribs. IMPRESSION: 1. Old, healed left ninth and 10th rib fractures. 2. No acute rib fractures identified. 3. No pneumothorax. Electronically signed by: José Luis Woodson M.D. 04/01/2017 7:17 AM Dictated Date/Time: 04/01/2017 7:14 AM
--- NOTE | 2017-04-01 07:20 | DIAGNOSTIC IMAGING REPORT ---
LEFT TIBIA/FIBULAR 2 VIEWS HISTORY: Left lower leg pain. left springre trauma from fall COMPARISON: None. FINDINGS: There is no fracture or dislocation. Soft tissues are unremarkable. There are 2 orthopedic screws seen at the medial malleolus. The hardware appears intact. IMPRESSION: No acute fracture or dislocation within the left lower leg. Electronically signed by: José Luis Woodson M.D. 04/01/2017 7:18 AM Dictated Date/Time: 04/01/2017 7:17 AM
--- NOTE | 2017-04-01 07:22 | DIAGNOSTIC IMAGING REPORT ---
LEFT SHOULDER 2 VIEWS CLINICAL HISTORY: Left shoulder pain. FINDINGS: 2 views of the left shoulder are obtained. No prior studies are available for comparison at the time of dictation. The skeletal structures are osteopenic. No fracture or dislocation is seen. Mild productive degenerative change is seen at the acromioclavicular joint. The glenohumeral articulation is preserved. The overlying soft tissues are within normal limits. The visualized left upper lobe lung parenchyma appears clear. Midline sternotomy wires are noted. IMPRESSION: Osteopenia and mild degenerative change as above. No fracture or dislocation is seen in the left shoulder. Electronically signed by: Abelardo Lopez M.D. 04/01/2017 7:21 AM Dictated Date/Time: 04/01/2017 7:20 AM
[2017-04-01] MEDS: FLUTICASONE/SALMETEROL 250/50 (ADVAIR) 14 PUFF/1 INHALER INH SCH ×2 (07:31→19:39)
[2017-04-01] MEDS: METOPROLOL TARTRATE 50 MG TAB PO SCH (07:32)
[2017-04-01] MEDS: ASPIRIN 81 MG ECTAB PO SCH (07:33)
[2017-04-01] MEDS: LISINOPRIL 2.5 MG TAB PO SCH (07:34)
[2017-04-01] MEDS: LORATADINE 10 MG TAB PO SCH (07:34)
[2017-04-01 07:40] VITALS: BP 133/70; PULSE 74; TEMP 36.8; O2SAT 94
[2017-04-01 08:00] VITALS: O2SAT 94
[2017-04-01] MEDS ORDERED: WARFARIN SOD 6 MG TAB PO SCH (08:00)
[2017-04-01] MEDS ORDERED: LISINOPRIL 2.5 MG TAB PO SCH (08:00)
[2017-04-01] MEDS ORDERED: METOPROLOL TARTRATE 50 MG TAB PO SCH (08:00)
[2017-04-01] MEDS: TRIAMCINOLONE ACET 0.1% CR 15 GM TUBE EXT SCH ×2 (08:00→19:39)
--- NOTE | 2017-04-01 08:27 | Hospitalist Progress Note ---
Hospitalist Progress Note Date of Service Apr 01, 2017. (Marybeth Harding PA-C) Subjective Pt evaluation today including: conversation w/ patient, physical exam, chart review, lab review Pain: none PO Intake: good Voiding: no voiding problems The patient was seen and examined this morning. Pt reports doing better today. He reports feeling stiff in his R shoulder, and slightly stiff in the R leg. He denies acute pain. -Underwent EEG testing this morning. Constitutional: + fatigue, No fever, No chills, No sweats Eyes: No redness, No diplopia ENT: No nasal symptoms, No trouble swallowing Respiratory: + cough, + problem reported (smokes 1 pack cigarrettes/e-cig daily), No sputum, No wheezing, No shortness of breath, No dyspnea on exertion Cardiovascular: No chest pain, No edema, No palpitations Abdomen: No pain, No nausea, No vomiting, No diarrhea, No constipation Musculoskeletal: No joint pain, No muscle pain Neurologic: + problem reported (Chronic left sided weakness s/p stroke, mild left sided facial droop) Psychiatric: + problem reported (+ etoh use, denies drug use hx), No depression symptoms, No anxiety Endo: No fatigue (Marybeth Harding PA-C) Objective Vital Signs Date Time Temp Pulse Resp B/P (MAP) Pulse Ox O2 Delivery O2 Flow Rate FiO2 04/01/17 07:40 36.8 74 16 133/70 (91) 94 Room Air 04/01/17 05:59 36.4 55 20 126/76 04/01/17 05:25 Room Air 04/01/17 05:02 63 16 124/72 97 Room Air 04/01/17 03:24 78 16 138/85 96 Room Air 04/01/17 01:43 58 16 102/88 97 Room Air 04/01/17 00:40 69 18 121/74 96 Room Air 03/31/17 23:15 37.0 61 18 105/68 97 Room Air (Marybeth Harding PA-C) Physical Exam General Appearance: WD/WN, no apparent distress, + thin Eyes: PERRL, + pertinent finding (left eye with lateral gaze) ENT: hearing grossly normal, pharynx normal, + pertinent finding (lesion over the left brow s/p fall) Neck: supple, no JVD Respiratory/Chest: lungs clear, no respiratory distress, no accessory muscle use, + pertinent finding (on RA) Cardiovascular: regular rate, rhythm, no murmur Abdomen: normal bowel sounds, non tender, soft Extremities: non-tender, no pedal edema, no calf tenderness Neurologic/Psychiatric: + motor weakness (Left sided extremities with 3/5 strength, Right sided 5/5, + contracture of the left hand, fingers easily extended. + left sided facial droop) Skin: normal color, warm/dry, + pertinent finding (+ area of excoriation over the left olecranon, left knee and springer. ) (Marybeth Harding, NEDA) Laboratory Results Last 24 Hours Test 04/01/17 05:00 White Blood Count 13.51 K/uL Red Blood Count 4.96 M/uL Hemoglobin 15.4 g/dL Hematocrit 45.0 % Mean Corpuscular Volume 90.7 fL Mean Corpuscular Hemoglobin 31.0 pg Mean Corpuscular Hemoglobin Concent 34.2 g/dl Platelet Count 206 K/uL Mean Platelet Volume 10.1 fL Neutrophils (%) (Auto) 61.2 % Lymphocytes (%) (Auto) 28.8 % Monocytes (%) (Auto) 8.2 % Eosinophils (%) (Auto) 1.3 % Basophils (%) (Auto) 0.2 % Neutrophils # (Auto) 8.27 K/uL Lymphocytes # (Auto) 3.89 K/uL Monocytes # (Auto) 1.11 K/uL Eosinophils # (Auto) 0.17 K/uL Basophils # (Auto) 0.03 K/uL RDW Standard Deviation 45.9 fL RDW Coefficient of Variation 14.0 % Immature Granulocyte % (Auto) 0.3 % Immature Granulocyte # (Auto) 0.04 K/uL Prothrombin Time 45.1 SECONDS Prothromb Time International Ratio 4.4 Sodium Level 140 mmol/L Potassium Level 3.3 mmol/L Chloride Level 110 mmol/L Carbon Dioxide Level 26 mmol/L Anion Gap 4.0 mmol/L Blood Urea Nitrogen 16 mg/dl Creatinine 1.17 mg/dl Est Creatinine Clear Calc Drug Dose 53.5 ml/min Estimated GFR () 74.3 Estimated GFR (Non- 64.1 BUN/Creatinine Ratio 13.6 Random Glucose 92 mg/dl Calcium Level 8.1 mg/dl (Marybeth Harding, NEDA) Assessment and Plan Patient is a 66 year old with a past medical history of an MCA stroke in 2016, HTN, HLD, and previously on a PEG tube that presents 11 hours after a fall in the bath tub Weakness /Fall Focal Seizure? - possible seizures although patient fully conscious during episodes - possible that this was a vasovagal episode which manifested older neurological deficits. - CT head neg, MRI brain from previous ED visit 2 days ago reviewed, shows no acute changes - Neurology consulted - appreciate recs - Keppra 500 mg BID for possible focal seizure - will need follow up at time of discharge. - EEG conducted and does not show epileptic activity - negative for seizure. - Neuro checks Q4H - Extremity Imaging negative for acute injury or fracture - PT/OT evals to be completed - pt had home health 6 months ago but has since stopped. He would likely benefit from home health services or inpatient rehab Hypertension - Lisinopril 2.5 mg daily, metoprolol tartrate 25 mg daily Hyperlipidemia - Atorvastatin 40 mg QPM Asthma - Advair Discus Hx of large MCA stroke in 2016 - does not appear that this has recurred via imaging - neurology on board - Continue statin therapy as above. - Confirmed patient 6mg/9mg dosing is accurate - Holding coumadin with INR - 4.4 this morning. Hx Drug Use - Patient has history of alcoholism - watch for withdrawal like symptoms - he currently state he does not drink although pt may be unreliable. He reports use as social, although will not give specific details on what he drinks, how much, how often. - Patient has questionable history of Percocet abuse --> Limit pain medications and restrict opiates - per nursing pt repetitively asking for Percocet. DVT ppx: coumadin, teds, scds Code Status: FULL Disposition: From home, lives alone independently, PT/OT to eval. Attempted to call Goran (significant other) at [phone] but no answer and voicemail not set up. (Marybeth Harding, NEDA) i personally examined pt and verified all alvarez points jovany Harding PAC feeling ok now - wondered why he was shaking - offered explainations to the best of my ability and to his satisfaciotn, updated on care thus far. discussed that rehab is recommended, initially he is hesitant but then notes that he was actually thinking about trying to get set up w [facility] again for L sided weakness and speech, and while he'd prefer to do things on his own timing , he then notes that he's OK w going to [facility] as dispo plan from the hospital vitals noted nad breathing unlabored no pallor or icterus, chronic appearing L sided weakness fall, focal seizure, chronic L sided weakness -keppra as per neuro, work on rehab placement otherwise as above (Cachorro Bernstein D.O.)
[2017-04-01] MEDS ORDERED: POTASSIUM CHLORIDE 20 MEQ TABCR PO ONE (08:45)
[2017-04-01] MEDS ORDERED: ASPIRIN 81 MG ECTAB PO SCH (09:00)
[2017-04-01] MEDS ORDERED: FLUTICASONE/SALMETEROL 250/50 (ADVAIR) 14 PUFF/1 INHALER INH SCH (09:00)
[2017-04-01] MEDS ORDERED: TRIAMCINOLONE ACET 0.1% CR 15 GM TUBE EXT SCH (09:00)
[2017-04-01] MEDS ORDERED: LORATADINE 10 MG TAB PO SCH (09:00)
--- NOTE | 2017-04-01 09:42 | Neurology Consultation ---
Neurology Consultation Date of Consultation: Apr 01, 2017. Attending Physician: Cachorro Bernstein D.O. Primary Care Physician: No Doctor, Assigned Reason for Consultation: Seizure-like activity History of Present Illness Source: patient, hospital records The patient is a 66-year-old male who complains of episodic shaking of the left upper limb. He experienced an episode about 11 hours prior to arrival while attempting to get out of the bathtub. He recalls that his left hand began to shake. The shaking subsequently spread to involve the entire left upper limb as well as the left leg. The patient subsequently fell sustained some minor injuries to the left side of the face, left arm, and ribs. He denies associated loss of consciousness. He recalls experiencing a similar, less intense episode on March 28. He was evaluated in the emergency department at that time for possible TIA like symptoms. An MRI of the brain at that time was negative for acute or subacute process. He does have a past medical history does notable for a large right temporoparietal infarct that occurred in December 2015. Smaller infarctions were also noted in the left parietal and left middle cerebral artery territory at that time as well. Stroke etiology felt to be cardioembolic although a definitive source was never identified. There was some concern for a tachybradycardia arrhythmia previously but no known history of atrial fibrillation. He was ultimately prescribed warfarin. His pro-time was therapeutic at the time of this most recent presentation. This patient's past medical history is also complicated by chronic alcohol and tobacco use. I reviewed the images as well as the radiologist's interpretation of the CT of the head completed at the time of this most recent admission. There is a large chronic-appearing right middle cerebral artery territory infarct as well as a smaller chronic left parietal infarct. There also appears to be a very small chronic infarct within the left insular cortex per my review. I reviewed the tracing pertaining to the bedside EEG completed this morning. The study does reveal fairly continuous right temporal parietal slowing which would imply underlying structural dysfunction and is probably consistent with this patient's large chronic right temporoparietal infarct. I did not observe any obvious epileptiform abnormalities. Official review with Dr. Delaney is pending at this time. Past Medical/Surgical History Medical Problems: (1) Altered mental status Status: Acute (2) Anticoagulated on Coumadin Status: Acute (3) Contusion of multiple sites Status: Acute (4) Cough Status: Acute (5) Fall Status: Acute (6) Fall Status: Acute (7) Head injury Status: Acute (8) Head injury, closed Status: Acute (9) Injury of right hand Status: Acute (10) Laceration of eyebrow, left Status: Acute (11) Neurological symptoms Status: Acute (12) Polycythemia Status: Acute (13) Rhabdomyolysis Status: Acute (14) Tremor of left hand Status: Acute (15) Wheezing Status: Acute (16) Wheezing Status: Acute Family History Noncontributory Social History Smokeless Tobacco Use: No Alcohol Use: history of abuse Drug Use: none Marital Status: in relationship Housing Status: lives alone Occupation Status: disabled Allergies Coded Allergies: Lorazepam (Verified Adverse Reaction, Intermediate, DELIRIUM, 03/28/17) excessive sedation Current Inpatient Medications Current Inpatient Medications Medications (Trade) Dose Ordered Sig/Rena Route Start Time Stop Time Status Last Admin Dose Admin Salmeterol Xinafoate/ Fluticasone (Advair Diskus 250/50 Inh) 1 puff BID INH 04/01/17 08:00 05/01/17 08:59 04/01/17 07:31 1 PUFF Triamcinolone Acetonide (Kenalog 0.1% Cream) 1 appln BID EXT 04/01/17 08:00 05/01/17 08:59 Acetaminophen (Tylenol Tab) 650 mg Q4 PRN PO 04/01/17 06:00 05/01/17 05:59 04/01/17 06:27 650 MG Atorvastatin Calcium (Lipitor Tab) 40 mg QPM PO 04/01/17 21:00 05/01/17 20:59 Baclofen (Lioresal Tab) 10 mg DAILY PRN PO 04/01/17 06:00 05/01/17 05:59 04/01/17 07:32 10 MG Loratadine (Claritin Tab) 10 mg DAILY PO 04/01/17 08:00 05/01/17 08:59 04/01/17 07:34 10 MG Aspirin (Ecotrin Tab) 81 mg DAILY PO 04/01/17 08:00 05/01/17 08:59 04/01/17 07:33 81 MG Metoprolol Tartrate (Lopressor Tab) 25 mg DAILY PO 04/01/17 08:00 05/01/17 07:59 04/01/17 07:32 25 MG Lisinopril (Zestril Tab) 2.5 mg DAILY PO 04/01/17 08:00 05/01/17 07:59 04/01/17 07:34 2.5 MG Review of Systems Constitutional: No fever or chills Eyes: Vision difficulty to the left ENT: No hearing loss or vertigo Cardiovascular: No chest pain or palpitations Respiratory: No coughing wheezing or shortness of breath Musculoskeletal: As per history of present illness Neurological: As per history of present illness A full 10 point review of systems was obtained from this patient with pertinent positives and negatives describes a history of present illness and otherwise listed above. All remaining systems reviewed and are negative. Physical Exam Vital Signs (Past 24 Hrs): Date Time Temp Pulse Resp B/P (MAP) Pulse Ox O2 Delivery O2 Flow Rate FiO2 04/01/17 07:40 36.8 74 16 133/70 (91) 94 Room Air 04/01/17 05:59 36.4 55 20 126/76 04/01/17 05:25 Room Air 04/01/17 05:02 63 16 124/72 97 Room Air 04/01/17 03:24 78 16 138/85 96 Room Air 04/01/17 01:43 58 16 102/88 97 Room Air 04/01/17 00:40 69 18 121/74 96 Room Air 03/31/17 23:15 37.0 61 18 105/68 97 Room Air The patient is a well-developed elderly male. He is sitting up comfortably in bed in no acute distress. The patient is alert and fully oriented. Recent and remote memory intact. Attention and concentration normal. Speech is somewhat slow and aprosodic. He is able to name objects and repeat phrases. Patient is right handed. Vocabulary normal. Fund of knowledge normal. Visual cerna are grossly full to confrontation. However, the patient does exhibit some visual neglect to the left field at times. Visual acuity normal. Pupils equal round reactive to light and accommodation. Eye movements normal. Facial sensation intact. There is a mild to moderate left lower facial droop noted. Hearing intact to finger rub bilaterally. Palate elevates to midline. Shoulder shrug strength intact bilaterally. Tongue protrudes to midline. Sensation intact to vibration, temperature, light touch, and proprioception in all 4 limbs. Patient does have a subtle element of left david-neglect. Deep tendon reflexes are relatively increased for the left arm and leg grading 3+. The left plantar responses upgoing. Deep tendon reflexes for the right arm and leg are normoactive and grade 2+. Right plantar response is equivocal. Patient exhibits dysmetria with finger to nose and heel to springer on the left. No dysmetria with finger to nose or heel to springer on the right. Ophthalmoscopic examination reveals normal-appearing optic disks and posterior segments. No papilledema or hemorrhages. Carotid pulses normal bilaterally, no bruits to auscultation. Patient exhibits a moderate left hemiparetic gait pattern. Muscle strength testing reveals weakness of the left arm and leg. Patient tends to keep the left arm in a flexed posture. There is mild weakness of the finger and wrist extensors of the left hand as well as mild weakness of extension at the left elbow. Flexor strength for the left upper limb is relatively preserved. There is some limitation of mobility about the left shoulder due to pain (frozen shoulder). There is mild weakness of the left lower extremity, more so involving hip flexors, knee flexors, and ankle dorsiflexors. Strength for the right arm and leg is normal. Muscle tone is increased for the left arm and leg as described above. There is no atrophy. No abnormal movements observed. Laboratory Results Past 24 Hours: 04/01/17 05:00 Red Blood Count 4.96, Mean Corpuscular Volume 90.7, Mean Corpuscular Hemoglobin 31.0, Mean Corpuscular Hemoglobin Concent 34.2, Mean Platelet Volume 10.1, Neutrophils (%) (Auto) 61.2, Lymphocytes (%) (Auto) 28.8, Monocytes (%) (Auto) 8.2, Eosinophils (%) (Auto) 1.3, Basophils (%) (Auto) 0.2, Neutrophils # (Auto) 8.27, Lymphocytes # (Auto) 3.89, Monocytes # (Auto) 1.11, Eosinophils # (Auto) 0.17, Basophils # (Auto) 0.03 04/01/17 05:00 Test 04/01/17 05:00 White Blood Count 13.51 K/uL (4.8-10.8) Red Blood Count 4.96 M/uL (4.7-6.1) Hemoglobin 15.4 g/dL (14.0-18.0) Hematocrit 45.0 % (42-52) Mean Corpuscular Volume 90.7 fL (80-100) Mean Corpuscular Hemoglobin 31.0 pg (25-34) Mean Corpuscular Hemoglobin Concent 34.2 g/dl (32-36) Platelet Count 206 K/uL (130-400) Mean Platelet Volume 10.1 fL (7.4-10.4) Neutrophils (%) (Auto) 61.2 % Lymphocytes (%) (Auto) 28.8 % Monocytes (%) (Auto) 8.2 % Eosinophils (%) (Auto) 1.3 % Basophils (%) (Auto) 0.2 % Neutrophils # (Auto) 8.27 K/uL (1.4-6.5) Lymphocytes # (Auto) 3.89 K/uL (1.2-3.4) Monocytes # (Auto) 1.11 K/uL (0.11-0.59) Eosinophils # (Auto) 0.17 K/uL (0-0.5) Basophils # (Auto) 0.03 K/uL (0-0.2) RDW Standard Deviation 45.9 fL (36.4-46.3) RDW Coefficient of Variation 14.0 % (11.5-14.5) Immature Granulocyte % (Auto) 0.3 % Immature Granulocyte # (Auto) 0.04 K/uL (0.00-0.02) Prothrombin Time 45.1 SECONDS (9.0-12.0) Prothromb Time International Ratio 4.4 (0.9-1.1) Anion Gap 4.0 mmol/L (3-11) Est Creatinine Clear Calc Drug Dose 53.5 ml/min Estimated GFR () 74.3 Estimated GFR (Non- 64.1 BUN/Creatinine Ratio 13.6 (10-20) Calcium Level 8.1 mg/dl (8.5-10.1) Impression 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 Chronic, large, right temporal parietal infarct in addition to several smaller chronic infarcts affecting the left cerebral hemisphere as described in the history of present illness. Chronic moderate spastic left hemiparesis. Chronic mild left david-sensory/visual neglect. Alcoholism. Continued tobacco use. History of suspected cardioembolic stroke occurring in December 2015 with stroke distribution as described in history of present illness. Plan Start Keppra 500 mg twice a day for suspected focal motor seizures. If this morning's bedside EEG is negative for epileptiform abnormalities after further review, I would recommend an ambulatory EEG as follow-up. Continue anticoagulation. However, patient's pro time was significantly elevated today. His dosage may need to be adjusted. Follow up in outpatient clinic
[2017-04-01] MEDS ORDERED: LEVETIRACETAM 500 MG TAB PO ONE (10:00)
--- NOTE | 2017-04-01 11:03 | EEG Procedure Note ---
EEG Procedure Note Date of Service Apr 01, 2017. Start / End Times Start Time: 8:50 AM End Time: 9:10 AM Referring Physician Figueroa Dey History This is a 66-year-old male who presents with seizure-like activity. EEG for further evaluation of possible seizure etiology. Home Medication List Scheduled Aspirin (Aspirin Ec), 81 MG PO DAILY Atorvastatin (Lipitor), 40 MG PO QPM Bond Tar Extract (Ionil-T), 1 APPLN TOP HS Fluticasone Prop/Salmeterol (Advair Diskus 250/50 60 Dose), 1 PUFF INH BID Lisinopril (Lisinopril), 2.5 MG PO DAILY Loratadine (Claritin), 10 MG PO DAILY Metoprolol Tartrate (Lopressor) (Lopressor), 25 MG PO DAILY Triamcinolone Acet (Aristocort 0.1%), 1 APPLN TOP BID Warfarin Sod (Coumadin), 6 MG PO 4XWK Warfarin Sodium (Coumadin), 9 MG PO 3XWK Scheduled PRN Acetaminophen (Apap), 650 MG PEG Q4 PRN for Pain or Fever Albuterol Sulfate (Proair Respiclick), 2 PUFFS INH Q6 PRN for wheezing Baclofen (Lioresal), 10 MG PO DAILY PRN for Muscle Spasms Oxycodone/Acetaminophen 5MG/325MG (Percocet 5MG/325MG), 1 TAB PO DAILY PRN for Pain Pseudoephedrine-Guaifenesin (Mucinex D), 1 TAB PO BID PRN for congestion Tadalafil (Cialis), 10 MG PO UD PRN for erectile dysfunction Inpatient Medication List Current Inpatient Medications Medications (Trade) Dose Ordered Sig/Rena Route Start Time Stop Time Status Last Admin Dose Admin Salmeterol Xinafoate/ Fluticasone (Advair Diskus 250/50 Inh) 1 puff BID INH 04/01/17 08:00 05/01/17 08:59 04/01/17 07:31 1 PUFF Triamcinolone Acetonide (Kenalog 0.1% Cream) 1 appln BID EXT 04/01/17 08:00 05/01/17 08:59 Acetaminophen (Tylenol Tab) 650 mg Q4 PRN PO 04/01/17 06:00 05/01/17 05:59 04/01/17 06:27 650 MG Atorvastatin Calcium (Lipitor Tab) 40 mg QPM PO 04/01/17 21:00 05/01/17 20:59 Baclofen (Lioresal Tab) 10 mg DAILY PRN PO 04/01/17 06:00 05/01/17 05:59 04/01/17 07:32 10 MG Loratadine (Claritin Tab) 10 mg DAILY PO 04/01/17 08:00 05/01/17 08:59 04/01/17 07:34 10 MG Aspirin (Ecotrin Tab) 81 mg DAILY PO 04/01/17 08:00 05/01/17 08:59 04/01/17 07:33 81 MG Metoprolol Tartrate (Lopressor Tab) 25 mg DAILY PO 04/01/17 08:00 05/01/17 07:59 04/01/17 07:32 25 MG Lisinopril (Zestril Tab) 2.5 mg DAILY PO 04/01/17 08:00 05/01/17 07:59 04/01/17 07:34 2.5 MG Levetiracetam (Keppra Tab) 500 mg BID PO 04/01/17 20:00 05/01/17 19:59 Guaifenesin (Mucinex Contr Rel Tab) 1,200 mg Q12 PO 04/01/17 11:00 05/01/17 10:59 UNV Description This is a 21 electrode EEG with a single channel dedicated to limited EKG. The electrodes were placed in accordance with the International 10-20 system. At the start of the recording the patient was in an awake state. Background was well organized and composed of mixed alpha and beta frequencies. There was minimal continuous right posterior quadrant slowing. There was a symmetric well- formed moderate amplitude 8-9 Hz posterior dominant rhythm that was reactive to eye opening and closure. Hyperventilation was not done. Intermittent photic stimulation at various frequencies produced no abnormalities. Sleep was indicated by vertex waves and symmetric sleep spindles. Interpretation This is an abnormal routine EEG secondary to very mild right posterior quadrant continuous slowing. There was no electrographic seizures or epileptiform discharges. Clinical Correlation The right posterior quadrant slowing indicates a structural or functional cerebral dysfunction nonspecific etiology. Right posterior quadrant slowing is likely consistent with the patient's area of previous ischemic stroke seen on neuroimaging.
[2017-04-01 15:09] VITALS: BP 121/71; PULSE 52; TEMP 36.8; O2SAT 99
--- NOTE | 2017-04-01 15:29 | Discharge Instructions ---
Discharge Instructions Date of Service Apr 01, 2017. Admission Reason for Admission: History Of Right Mca Stroke, Tremor Discharge Discharge Diagnosis / Problem: Seizure like activity, s/p Fall in setting of old Right MCA stroke Discharge Goals Goal(s): Decrease discomfort, Improve function, Increase independence, Improve disease control Activity Recommendations Activity Level: Up Ad Gregoria Therapies: Physical Therapy, Occupational Therapy, Speech Therapy Lifting Limitations: none, gradually increase as tolerated Exercise/Sports Limitations: gradually increase as tolerated Shower/Bathe: no limitations (with assistance) . Additional Information Patient informed of condition: Yes Advance Directives: No DNR: No Level of Care: Acute Rehab Communicable Disease: No Prognosis: Stable Lazcano Catheter: No Instructions / Follow-Up Instructions / Follow-Up You were admitted to [facility] with tremor and fall and diagnosed with possible seizure like activity in the setting of old R MCA cardioembolic stroke. During your stay here you were treated with supportive care, physical therapy and occupational therapy and it was recommended that you be discharged to acute rehab. Imaging studies which were completed include EEG, and were normal, meaning there was no seizure activity captured during this 30 minute study. Neurology was consulted and you were started on a low dose anti-epileptic medication (anti-seizure) medication. Lab Work: Your INR was elevated at the time of admission and was slowly trending downward. INR=4.0 at time of discharge. Continue to hold home coumadin for another 2 days. Have repeat INR drawn daily x 2 days and resume as indicated by physician at [facility]. Medications: Continue taking your medications as prescribed above. Continue taking Keppra 500 mg twice daily Therapy: Continue occupational, physical and speech therapy Appointments: Please follow up with Dr. Kathy Israel on Thursday, April 06, 2017 at 12: 45pm. *If you need to reschedule this appointment please call [phone]. Please follow up with Dr. Latisha Delaney, Neurology, on Sunday, April 09, 2017 at 2:00pm. *Dr. Delaney's office is located at [address], [address], [place], [place]. *If you need to reschedule this appointment please call the office at [phone]. Current Hospital Diet Patient's current hospital diet: Regular Diet Discharge Diet Recommended Diet: Regular Diet Pending Studies Studies pending at discharge: no Medical Emergencies . Who to Call and When: Medical Emergencies: If at any time you feel your situation is an emergency, please call 911 immediately. . Non-Emergent Contact Non-Emergency issues call your: Primary Care Provider Call Non-Emergent contact if: you have a fever, temperature is above 100.5, your pain is not controlled, your pain is worsening, your pain is unusual for you, your pain is concerning you, you have any medication questions other concerns with your health. Call 911 or go directly to the Emergency Department if you experience any of the following: Chest pain, chest tightness, shortness of breath, abdominal pain , lightheadedness, dizziness, gastrointestinal bleeding, or have any other concerns regarding your health. . Past History Medical & Surgical History: (1) Seizure-like activity (2) Tremor (3) Contusion of multiple sites (4) History of right MCA stroke (5) Depression (6) Alcohol abuse . "Provider Documentation" section prepared by Doretha Harding. . Core Measure Problem Core Measures: None [place] Drug Monitoring Program Search Results: patient reviewed within database
[2017-04-01 16:00] VITALS: O2SAT 94
[2017-04-01] MEDS: GUAIFENESIN 600 MG TABCR PO SCH ×2 (17:52→21:21)
[2017-04-01] MEDS: LEVETIRACETAM 500 MG TAB PO SCH (19:39)
[2017-04-01] MEDS ORDERED: ATORVASTATIN 20 MG TAB PO SCH ×2 (21:00)
[2017-04-01 23:40] VITALS: BP 107/66; PULSE 56; TEMP 37; O2SAT 97
[2017-04-02 07:48] VITALS: BP 127/74; PULSE 76; TEMP 36.7; O2SAT 96
[2017-04-02] MEDS: TRIAMCINOLONE ACET 0.1% CR 15 GM TUBE EXT SCH (08:00)
[2017-04-02] MEDS: LEVETIRACETAM 500 MG TAB PO SCH (08:18)
[2017-04-02] MEDS: ASPIRIN 81 MG ECTAB PO SCH (08:18)
[2017-04-02] MEDS: LORATADINE 10 MG TAB PO SCH (08:18)
[2017-04-02] MEDS: LISINOPRIL 2.5 MG TAB PO SCH (08:18)
[2017-04-02] MEDS: METOPROLOL TARTRATE 50 MG TAB PO SCH (08:19)
[2017-04-02] MEDS: FLUTICASONE/SALMETEROL 250/50 (ADVAIR) 14 PUFF/1 INHALER INH SCH (08:19)
--- NOTE | 2017-04-02 08:40 | Clinical Documentation Query ---
CLINICAL DOCUMENTATION QUERY Dr. FRANK, In your clinical opinion is this patient being managed for: (x ) Focal seizure possibly late effect of prior CVA - see discharge summary ( ) Not Agree ( ) Other explanation of clinical findings (Please Explain) ( ) Unable to determine (Please Define) ( ) Need to Discuss The medical record reflects the following clinical findings, treatment, and risk factors. Clinical Indicators: 66 yo male presenting with fall and suspected focal seizure. Pt also has a known history of CVA in 2016. Treatment: neurology consult, MRI brain, neuro checks, EEG, keppra Risk Factors: prior CVA Late Effects of Neurological Conditions Late effects of certain neurological conditions will impact patient clinical severity; consider one of the following diagnoses if clinically appropriate for the patient: - Late effect of CVA manifested as seizures, vertigo, ataxia, or muscle weakness Please clarify and document your clinical opinion in the progress notes and discharge summary. Terms such as "probable", "suspected", "likely", "questionable", "possible", or "still to be ruled out" are acceptable. IF IN AGREEMENT, YOU MUST DOCUMENT ABOVE DIAGNOSTIC STATEMENT IN DAILY PROGRESS NOTES AND DISCHARGE SUMMARY. This document is not part of the patient's record. Thank You, Amina Gibson, DENG [phone]
[2017-04-02] MEDS: GUAIFENESIN 600 MG TABCR PO SCH (09:34)
[2017-04-02] MEDS ORDERED: LEVE500T13 PO (09:47)
[2017-04-02] MEDS ORDERED: GFNSR600 PO (09:47)
--- NOTE | 2017-04-02 14:02 | Discharge Summary ---
Discharge Summary Date of Service Apr 02, 2017. 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 LEFT SHOULDER 2 VIEWS 04/01/17 IMPRESSION: Osteopenia and mild degenerative change as above. No fracture or dislocation is seen in the left shoulder. L RIBS UNILATERAL WITH PA CHEST 04/01/17 IMPRESSION: 1. Old, healed left ninth and 10th rib fractures. 2. No acute rib fractures identified. 3. No pneumothorax. HEAD CT NONCONTRAST 04/01/17 Findings: The paranasal sinuses and mastoid air cells are clear. The calvarium and skull base are intact. The ventricles and sulci are within normal limits. There is no mass, hematoma, midline shift, or acute infarct. Old infarcts are again noted. Impression: No significant change compared to the prior study. No acute intracranial abnormality. L ELBOW 2 VIEWS 04/01/17 IMPRESSION: 1. Significantly limited study from a positioning standpoint 2. No acute fractures or dislocations are visualized on the provided 2 images 3. Additional imaging should be considered if symptoms persist Consultations: Neurology Medication Reconciliation New Medications: Guaifenesin Ext Rel (Mucinex Ext Rel) 600 Mg Tabcr 1200 MG PO Q12 for 30 Days, #120 TAB Levetiracetam (Keppra) 500 Mg Tab 500 MG PO BID for 30 Days, #60 TAB Continued Medications: Acetaminophen (Apap) 325 Mg Tab 650 MG PEG Q4 PRN for Pain or Fever Albuterol Sulfate (Proair Respiclick) 108 Mcg/Act Aer 2 PUFFS INH Q6 PRN for wheezing Aspirin (Aspirin Ec) 81 Mg Tab 81 MG PO DAILY Atorvastatin (Lipitor) 40 Mg Tab 40 MG PO QPM, TAB Baclofen (Lioresal) 10 Mg Tab 10 MG PO DAILY PRN for Muscle Spasms, TAB Tripp Tar Extract (Ionil-T) 1 % Sha 1 APPLN TOP HS applies to scalp Fluticasone Prop/Salmeterol (Advair Diskus 250/50 60 Dose) 1 Ea Aerp 1 PUFF INH BID for Shortness of Breath, INHALER Lisinopril (Lisinopril) 2.5 Mg Tab 2.5 MG PO DAILY Loratadine (Claritin) 10 Mg Tab 10 MG PO DAILY, TAB Metoprolol Tartrate (Lopressor) (Lopressor) 50 Mg Tab 25 MG PO DAILY, TAB Oxycodone/Acetaminophen 5MG/325MG (Percocet 5MG/325MG) Tab 1 TAB PO DAILY PRN for Pain for 30 Days, #60 TAB PAIN Pseudoephedrine-Guaifenesin (Mucinex D) 1 Tab Tab 1 TAB PO BID PRN for congestion for 10 Days, #20 TAB Tadalafil (Cialis) 10 Mg Tab 10 MG PO UD PRN for erectile dysfunction, TAB Triamcinolone Acet (Aristocort 0.1%) 90 Appln/30 Gm Cr 1 APPLN TOP BID Warfarin Sod (Coumadin) 6 Mg Tab 6 MG PO 4XWK TAKES SUN, TUES, THUR, & SAT. Warfarin Sodium (Coumadin) 6 Mg Tab 9 MG PO 3XWK, TAB TAKES MON, WED, & FRI. Discharge Exam The patient was seen and examined this morning. Pt reports doing well today. He says he doesn't have any pain in his joint and feels stiffness is improved today compared to yesterday. He has been ambulating with nursing assistance to the bathroom, and has worked with PT/OT. Pt is hoping for discharge to [facility]. He denies any acute complaints. No shaking, tremors, changes in vision, or strength. ROS: 10 point ROS reviewed and otherwise negative. PE: General Appearance: WD/WN, no apparent distress, + thin Eyes: PERRL, + pertinent finding (left eye with lateral gaze) ENT: hearing grossly normal, pharynx normal, + pertinent finding (lesion over the left brow s/p fall with surrounding ecchymosis) Neck: supple, no JVD Respiratory/Chest: lungs clear, no respiratory distress, no accessory muscle use, + pertinent finding (on RA) Cardiovascular: regular rate, rhythm, no murmur Abdomen: normal bowel sounds, non tender, soft Extremities: non-tender, no pedal edema, no calf tenderness Neurologic/Psychiatric: + motor weakness (Left sided extremities with 3/5 strength, Right sided 5/5, + contracture of the left hand, fingers easily extended. + left sided facial droop) Skin: normal color, warm/dry, + pertinent finding (+ area of excoriation over the left olecranon, left knee and springer. ) Hospital Course History of Present Illness Source: patient, hospital records Patient is a 66 year old with a past medical history of an MCA stroke in 2016, HTN, HLD, and previously on a PEG tube that presents 11 hours after a fall in the bath tub. The patient states he began having shaking in his left arm and weakness in his left thigh, similar for an episode he was evaluated in the emergency department for 2 days prior. He began to fall while trying to leave the bathtub and grabbed the faucet which was ripped out of the wall. He injured his left eye, shoulder, elbow, and springer during the fall. The patient had to stay at home to fix the leaking and then afterwards came into the hospital. The patient at this time states that is not having a headache, weakness, or any residual symptoms but fears the events recurring and having another fall. Physical Exam General Appearance: WD/WN, no apparent distress Head: normocephalic, + pertinent finding (laceration over left eye) Eyes: normal inspection, sclerae normal Neck: supple, no carotid bruits Respiratory/Chest: chest non-tender, lungs clear, normal breath sounds Cardiovascular: regular rate, rhythm, no edema, no gallop Abdomen/GI: normal bowel sounds, non tender, soft Extremities/Musculoskelatal: normal inspection, no calf tenderness Neurologic/Psych: j2ee programmer II-XII nml as tested, alert, normal mood/affect, oriented x 3, + pertinent finding (left sided upper and lower extremity weakness. 3/5 strength in LUE and 5/5 in RUE. Residual left sided facial droop from previous stroke. PERRL. EOMI. No tremor of shaking during evaluation.) Hospital Course: Patient is a 66 year old with a past medical history of an MCA stroke in 2016, HTN, HLD, and previously on a PEG tube that presented 11 hours after a fall in the bath tub. Weakness /Fall due to Focal Seizure possibly late effect of prior CVA - focal seizure likely manifested older neurological deficits. - CT head neg, MRI brain from previous ED visit prior to this admission reviewed , shows no acute changes - Neurology consulted - appreciate recs - Keppra 500 mg BID started, appears to be tolerating medication well. - EEG conducted and does not show epileptic activity - negative for seizure. - Neuro checks Q4H were negative during admission. - Extremity Imaging negative for acute injury or fracture - PT/OT evals to be completed - pt had home health 6 months ago but has since stopped. Pt was recommended for inpatient rehab so it has been arranged that he goes to [facility] at time of discharge. Hypertension - Lisinopril 2.5 mg daily, metoprolol tartrate 25 mg daily Hyperlipidemia - Atorvastatin 40 mg QPM Asthma - Advair Discus Hx of large MCA stroke in 2016 - does not appear that this has recurred via imaging - neurology on board - Continue statin therapy as above. - Confirmed patient 6mg/9mg dosing is accurate - Holding coumadin with INR - 4.0 - INR should be rechecked daily at [facility] x 2 days and resume coumadin per physician at the facility. Hx Drug Use - Patient has history of alcoholism - watch for withdrawal like symptoms - he currently state he does not drink although pt may be unreliable. He reports use as social, although will not give specific details on what he drinks, how much, how often. - Patient has questionable history of Percocet abuse --> Limit pain medications and restrict opiates - per nursing pt repetitively asking for Percocet. DVT ppx: coumadin, teds, scds Code Status: FULL Disposition: From home, lives alone independently, PT/OT to eval. i personally examined pt and verified all alvarez points jovany Harding PAC feeling ok for rehab no new complaints vitals noted nad breathing unlabored no pallor or icterus fall - likely seizure and/or shower-mediated vasodilation -keppra as per neuro -stable for rehab otherwise as above Total Time Spent: Greater than 30 minutes This includes examination of the patient, discharge planning, medication reconciliation, and communication with other providers. Discharge Instructions Please refer to the electronic Patient Visit Report (Discharge Instructions) for additional information. Follow-Up Please follow up with Dr. Kathy Israel on Thursday, April 06, 2017 at 12: 45pm. Please follow up with Dr. Latisha Delaney, Neurology, on Sunday, April 09, 2017 at 2:00pm. *Dr. Delaney's office is located at [address], [address], [place], [place]. *If you need to reschedule this appointment please call the office at .
[2017-04-02 14:40] VITALS: BP 115/72
[2017-04-02 15:16] VITALS: BP 115/72; PULSE 76; TEMP 36.7; O2SAT 96
== END 2017-04-02 16:10 | DRG 57 ==
LOC: EDBD 23:04 → C.EDC 23:10 → C.4E 04-01 04:41 → ENRESERV 04-01 05:30
PROVIDERS: ADMIT Student in an Organized Health Care Education/Training Program; ATTEND Family Medicine
DX: I69.398 Other sequelae of cerebral infarction (principal); I69.354 Hemiplegia and hemiparesis following cerebral infarction affecting left non-dominant side; Z68.1 Body mass index [BMI] 19.9 or less, adult; R56.9 Unspecified convulsions; S01.112A Laceration without foreign body of left eyelid and periocular area, initial encounter; T14.8XXA Other injury of unspecified body region, initial encounter; M79.662 Pain in left lower leg; M25.512 Pain in left shoulder; M25.522 Pain in left elbow; R07.81 Pleurodynia; F10.21 Alcohol dependence, in remission; I10 Essential (primary) hypertension; E78.5 Hyperlipidemia, unspecified; J45.909 Unspecified asthma, uncomplicated; F17.200 Nicotine dependence, unspecified, uncomplicated; Z79.899 Other long term (current) drug therapy; Z79.01 Long term (current) use of anticoagulants; Z79.82 Long term (current) use of aspirin; W18.2XXA Fall in (into) shower or empty bathtub, initial encounter; Y93.E1 Activity, personal bathing and showering; Y92.002 Bathroom of unspecified non-institutional (private) residence as the place of occurrence of the external cause; Y99.8 Other external cause status